=== PATIENT | female | born 1940 | race Caucasian/White ===

== ENCOUNTER 2018-08-04 04:53 | Emergency (ER) | payer MEDICARE, OTHER ==
[~2018-08-04] VITALS: Ht 157.5 cm; Wt 61.2 kg
[~2018-08-04 04:53] MED LIST: ASPIRIN81 MG PO; MAGNESIUM250 MG PO; MICARDIS HCT 41 EACH PO; OMEGA-31000 MG PO; VITAMIN B12 COMPLEX PO; VITAMIN D32000 UNIT PO; ZINC PO; [UNRECOGNIZED DRUG - OTHER] PO
[2018-08-04] MEDS ORDERED: FAMOTIDINE 20 MG/2 ML VIAL IV ONE (05:02)
[2018-08-04] MEDS ORDERED: DIPHENHYDRAMINE HCL INJ 50 MG/ML VIAL ONE (05:02)
[2018-08-04] MEDS ORDERED: METHYLPREDNISOLONE SOD SUCC 125 MG/2ML VIAL ONE (05:02)
[2018-08-04] MEDS ORDERED: FAMOTIDINE 20 MG/2 ML VIAL IV STA (05:10)
[2018-08-04] MEDS ORDERED: DIPHENHYDRAMINE HCL INJ 50 MG/ML VIAL IV ONE (05:15)
[2018-08-04] MEDS ORDERED: METHYLPREDNISOLONE SOD SUCC 125 MG/2ML VIAL IV ONE (05:15)
--- NOTE | 2018-08-04 07:05 | NUR ---
DR JORDAN AT BEDSIDE FOR PATIENT EVAL AND DISCUSSING THE CURRENT PLAN OF CARE WITH PATIENT AND FAMILY,VERBALIZED UNDERSTANDING. NO SIGNS OF ACUTE DISTRESS NOTED AT THIS TIME.
== END 2018-08-04 07:30 | disposition home or self-care (01) ==
LOC: ER 04:53
DX: L50.0 Allergic urticaria (principal); I10 Essential (primary) hypertension
CPT/HCPCS: 99283; J1200; J2930

== ENCOUNTER → 2019-02-11 | Day surgery (SDC) | payer MEDICARE ==
[~2019-02-11] MED LIST changes: +CLONIDINE HCL0.1 MG PO; +FENTANYL CITRATE/PF 100MCG/2 ML INJ ONE; +LEVOTHYROXINE50 MCG PO; +MIDAZOLAM HCL 2 MG/2 ML VIAL ONE; +ONDANSETRON HCL INJ 2MG/ML 2ML 2 MG/ML VIAL ONE; +OR PHACO EYE KIT ONE; +PREOP PHACO EYE KIT ONE
[2019-02-11 14:30] VITALS: BP 159/89
== END | disposition home or self-care (01) ==
LOC: OR 10:43
PROVIDERS: ATTEND Ophthalmology
DX: H25.12 Age-related nuclear cataract, left eye (principal); E78.5 Hyperlipidemia, unspecified; E03.9 Hypothyroidism, unspecified; I10 Essential (primary) hypertension; F41.9 Anxiety disorder, unspecified; Z88.3 Allergy status to other anti-infective agents; Z88.8 Allergy status to other drugs, medicaments and biological substances
CPT/HCPCS: 66984; J2250; J2405; J3010; V2632

== ENCOUNTER → 2019-02-25 | Day surgery (SDC) | payer MEDICARE ==
[2019-02-18 16:06] LABS: BASOPHILS % 0.2 % (0.0-1.0); EOSINOPHILS # (AUTO) 0.3 (0.0-0.4); EOSINOPHILS % 3.1 % (0.0-6.0); HEMATOCRIT 42.5 % (34.2-44.1); HEMOGLOBIN 13.6 g/dL (12.0-16.0); LYMPHOCYTES # (AUTO) 3.1 (1.0-3.2); LYMPHOCYTES % 32.9 % (18.0-39.1); MEAN CORPUSCULAR HEMOGLOBIN 30.4 pg (28-32); MEAN CORPUSCULAR VOLUME 95.1 fL (81-99); MONOCYTES # (AUTO) 0.9 (0.2-0.8); NEUTROPHILS % 53.5 % (38.7-80.0); PLATELET COUNT 179 x10e3/uL (140-360); RED BLOOD COUNT 4.47 x10e6/uL (3.6-5.1); RED CELL DISTRIBUTION WIDTH 13.2 % (11.7-14.4)
[~2019-02-25] MED LIST changes: +DEXAMETHASONE SOD PHOS INJ 4 MG/ML VIAL ONE
--- OUTSIDE RECORDS SUMMARY | 2019-02-25 07:25 | XMS REPORT | CCD ---
Author Author Auto Generated Organization [facility] Address Unknown Phone Unavailable Care Team Providers Care Story Writer Name Role Phone Nirali Han CP [phone] Jeana Pack CP Unavailable True Mccall Cathi CP Jennifer Turner CP Unavailable Sirena Blankenship CP Unavailable Nichelle Harman CP Unavailable Aprana Lima CP Unavailable Brie Oro CP ChartServer, Login CP Unavailable Ashleigh Thomas CP [phone] SYSTEM, SYSTEM CP Unavailable Carl Pace CP [phone] Roberto Carlos Polk CP Diamond Boykin CP Unavailable Allergies, Adverse Reactions, Alerts Substance Reaction Status all cholesterol meds ?? Active all diuretics ?? Active Lipitor ?? Active Neosporin ?? Active Vital Signs Most recent to oldest [Reference Range]: 1 2 3 Height 157.48 cm (02/24/2011 17:37:00) ? Temperature Oral [96.4-99.1 DegF] 98.1 DegF (02/24/2011 21:38:00) ?? 97.7 DegF (02/24/2011 17:26:00) ? Systolic Blood Pressure [90-140 mmHg] 124 mmHg (02/24/2011 21:38:00) ?? 116 mmHg (02/24/2011 19:57:00) ?? 157 mmHg *HI* (02/24/2011 17:26:00) ?? Diastolic Blood Pressure [60-90 mmHg] 81 mmHg (02/24/2011 21:38:00) ?? 72 mmHg (02/24/2011 19:57:00) ?? 79 mmHg (02/24/2011 17:26:00) ?? Respiratory Rate [14-20 BRMIN] 18 BRMIN (02/24/2011 21:38:00) ?? 16 BRMIN (02/24/2011 19:57:00) ?? 18 BRMIN (02/24/2011 17:26:00) ?? Peripheral Pulse Rate [60-100 bpm] 81 bpm (02/24/2011 21:38:00) ?? 75 bpm (02/24/2011 19:57:00) ?? 98 bpm (02/24/2011 17:26:00) ?? Weight 66.818 kg (02/24/2011 17:37:00) ? Results HEMATOLOGY Most recent to oldest [Reference Range]: 1 WBC [3.7-10.4 K/CMM] 7.2 K/CMM (02/24/2011 19:15:00) ?? RBC [4.20-5.40 M/CMM] 3.10 M/CMM *LOW* (02/24/2011:15:00) ?? Hgb [12.0-16.0 g/dL] 10.3 g/dL *LOW* (02/24/2011 19:15:00) ?? Hct [36.0-48.0 %] 30.2 % *LOW* (02/24/2011:15:00) ?? MCV [81.0-99.0 fL] 97.3 fL (02/24/2011 19:15:00) ?? MCH [27.0-31.0 pg] 33.1 pg *HI* (02/24/2011:15:00) ?? MCHC [32.0-36.0 g/dL] 34.0 g/dL (02/24/2011 19:15:00) ?? RDW [11.5-14.5 %] 17.4 % *HI* (02/24/2011:15:00) ?? Platelet [133-450 K/CMM] 458 K/CMM *HI* (02/24/2011 19:15:00) ?? MPV [7.4-10.4 fL] 8.9 fL (02/24/2011:15:00) ?? Segs [45.0-75.0 %] 59.3 % (02/24/2011 19:15:00) ?? Lymphocytes [20.0-40.0 %] 26.0 % (02/24/2011:15:00) ?? Monocytes [2.0-12.0 %] 10.7 % (02/24/2011 19:15:00) ?? Eosinophils [0.0-4.0 %] 2.4 % (02/24/2011:15:00) ?? Basophils [0.0-1.0 %] 1.6 % *HI* (02/24/2011 19:15:00) ?? Segs-Bands # [1.5-8.1 K/CMM] 4.3 K/CMM (02/24/2011:15:00) ?? Lymphocytes # [1.0-5.5 K/CMM] 1.9 K/CMM (02/24/2011:15:00) ?? Monocytes # [0.0-0.8 K/CMM] 0.8 K/CMM (02/24/2011 19:15:00) ?? Eosinophils # [0.0-0.5 K/CMM] 0.2 K/CMM (02/24/2011 19:15:00) ?? Basophils # [0.0-0.2 K/CMM] 0.1 K/CMM (02/24/2011 19:15:00) ?? PT [12.0-14.7 seconds] 19.0 seconds *HI* (02/24/2011:15:00) ?? INR [0.85-1.17] 1.61 1 *HI* (02/24/2011:15:00) ?? PTT [22.9-35.8 seconds] 30.8 seconds 2 (02/24/2011:15:00) ?? 1Interpretive Data: RECOMMENDED RANGES FOR PROTIME INR: 2.0-3.0 for most medical and surgical thromboembolic states. 2.5-3.5 for artificial heart valves and recurrent embolism.INR SHOULD BE USED ONLY FOR PATIENTS ON STABLE ANTICOAGULANT THERAPY. 2Interpretive Data: Heparin Therapeutic Range: 57 - 92 Seconds
--- OUTSIDE RECORDS SUMMARY | 2019-02-25 07:25 | XMS REPORT | CCD ---
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
--- OUTSIDE RECORDS SUMMARY | 2019-02-25 07:25 | XMS REPORT | Summary of Care ---
Author Organization Unknown Address Unknown Phone Unavailable Encounter HQ Scooter(JUS) [id number] Date(s): 10/17/13 - 10/17/13 [facility] [address] Discharge Disposition: Home Physician Attending: True Mccall MD Physician_Referring: True Mccall MD Reason for Visit SCREENING Problem List Condition Effective Dates Status Health Status Informant Anemia(Confirmed) Active Back Active injury(Confirmed) Breast Active cancer(Confirmed) Cholesterol(Confirme Active d) DVT - Deep vein Active thrombosis(Confirmed ) Hypertension(Confirm Active ed) IVC - Insertion of Active inferior vena caval filter(Confirmed) Spinal Active fusion(Confirmed) Allergies, Adverse Reactions, Alerts Substance Reaction Severity Status all cholesterol meds Active all diuretics Active Lipitor Active Neosporin Active Medications No data available for this section Medications Administered During Your Visit No data available for this section Immunizations No data available for this section
--- OUTSIDE RECORDS SUMMARY | 2019-02-25 07:25 | XMS REPORT | CCD ---
Author Author Auto Generated Organization [facility] Address Unknown Phone Unavailable Care Team Providers Care Survey Operations Director Name Role Phone CP Unavailable Han, Nirali CP [phone] Jeana Pack CP Unavailable MccallTrue goldberg Cathi CP Jennifer Turner CP Unavailable Sirena Blankenship CP Unavailable Nichelle Harman CP Unavailable Aparna Lima CP Unavailable Brie Oro CP ChartServer, Login CP Unavailable Ashleigh Thomas CP [phone] SYSTEM, SYSTEM CP Unavailable Carl Pace CP [phone] Roberto Carlos Polk CP Diamond Boykin CP [...] ?? RBC [4.20-5.40 M/CMM] 3.10 M/CMM *LOW* (02/24/2011 19:15:00) ?? Hgb [12.0-16.0 g/dL] 10.3 g/dL *LOW* (02/24/2011 19:15:00) ?? Hct [36.0-48.0 %] 30.2 % *LOW* (02/24/2011 19:15:00) ?? MCV [81.0-99.0 fL] 97.3 fL (02/24/2011 19:15:00) ?? MCH [27.0-31.0 pg] 33.1 pg *HI* (02/24/2011:15:00) ?? MCHC [32.0-36.0 g/dL] 34.0 g/dL (02/24/2011 19:15:00) ?? RDW [11.5-14.5 %] 17.4 % *HI* (02/24/2011:15:00) ?? Platelet [133-450 K/CMM] 458 K/CMM *HI* (02/24/2011 19:15:00) ?? MPV [7.4-10.4 fL] 8.9 fL (02/24/2011 19:15:00) ?? Segs [45.0-75.0 %] 59.3 % (02/24/2011 19:15:00) ?? Lymphocytes [20.0-40.0 %] 26.0 % (02/24/2011:15:00) ?? Monocytes [2.0-12.0 %] 10.7 % (02/24/2011 19:15:00) ?? Eosinophils [0.0-4.0 %] 2.4 % (02/24/2011:15:00) ?? Basophils [0.0-1.0 %] 1.6 % *HI* (02/24/2011 19:15:00) ?? Segs-Bands # [1.5-8.1 K/CMM] 4.3 K/CMM (02/24/2011 19:15:00) ?? Lymphocytes # [1.0-5.5 K/CMM] 1.9 K/CMM (02/24/2011 19:15:00) ?? Monocytes # [0.0-0.8 K/CMM] 0.8 K/CMM (02/24/2011 19:15:00) ?? Eosinophils # [0.0-0.5 K/CMM] 0.2 K/CMM (02/24/2011 19:15:00) ?? Basophils # [0.0-0.2 K/CMM] 0.1 K/CMM (02/24/2011 19:15:00) ?? PT [12.0-14.7 seconds] 19.0 seconds *HI* (02/24/2011:15:00) ?? INR [0.85-1.17] 1.61 1 *HI* (02/24/2011 19:15:00) ?? PTT [22.9-35.8 seconds] 30.8 seconds 2 (02/24/2011 19:15:00) ?? 1Interpretive Data: RECOMMENDED RANGES FOR PROTIME INR: 2.0-3.0 for most medical and surgical thromboembolic states. 2.5-3.5 for artificial heart valves and recurrent embolism.INR SHOULD BE USED ONLY FOR PATIENTS ON STABLE ANTICOAGULANT THERAPY. 2Interpretive Data: Heparin Therapeutic Range: 57 - 92 Seconds Procedures Procedures Date Related Diagnosis Emergency department visit for the evaluation and management 02/24/2011 00:00:00 ?? of a patient, which requires these 3 smith components: A detailed history; A detailed examination; and Medical decision making of moderate complexity. Counseling and/or coordination of care with o Introduction of needle or intracatheter, vein 02/24/2011 00:00:00 ?? Venous Catheterization, Not Elsewhere Classified 02/24/2011 00:00:00 ??
--- OUTSIDE RECORDS SUMMARY | 2019-02-25 07:25 | XMS REPORT | Summary of Care ---
Author Author [facility] Organization [facility] Address Unknown Phone Unavailable Encounter HQ Scooter(JUS) [id number] Date(s): 06/02/18 - 06/02/18 [facility] [address] [place] [address]- Encounter Diagnosis Pain in right shoulder (Final) - 06/07/18 Incomplete rotator cuff tear or rupture of right shoulder, not specified as trau matic (Final) - Primary osteoarthritis, right shoulder (Final) - Bursitis of right shoulder (Final) - Effusion, right shoulder (Final) - Unspecified sprain of right shoulder joint, initial encounter (Final) - Discharge Disposition: Home or Self Care Attending Physician: Gorge Winter MD Referring Physician: Gorge Winter MD Vital Signs No data available for this section Problem List Condition Effective Dates Status Health Status Informant Anemia(Confirmed) Active Back Active injury(Confirmed) Breast Active cancer(Confirmed) DVT of lower Resolved extremity (deep venous thrombosis)(Confirme d) DVT - Deep vein Active thrombosis(Confirmed ) FH: Active hypertension(Confirm ed) Hypertension(Confirm Active ed) Hypothyroid(Confirme Active d) Presence of IVC Active filter(Confirmed) IVC - Insertion of Active inferior vena caval filter(Confirmed) Breast Resolved cancer(Confirmed) Pain in right Active shoulder(Confirmed) Spinal Active fusion(Confirmed) Allergies, Adverse Reactions, Alerts Substance Reaction Severity Status all diuretics Active all cholesterol meds Active Neosporin Active Lipitor Active Medications No data available for this section Results No data available for this section Immunizations No data available for this section Procedures Procedure Date Related Diagnosis Body Site Status Bunionectomy Completed IVC - Insertion of inferior vena caval filter Completed Lumbar and lumbosacral fusion by posterior Completed technique Partial mastectomy of left breast Completed Social History Social History Type Response Alcohol Past Smoking Status Former smoker; Exposure to Tobacco Smoke None; Cigarette Smoking Last 365 Days No; Reg Smoking Cessation Counseling No entered on: 06/11/18 Assessment and Plan No data available for this section
--- OUTSIDE RECORDS SUMMARY | 2019-02-25 07:25 | XMS REPORT | CCD ---
Author Author Auto Generated Organization [facility] Address Unknown Phone Unavailable Care Team Providers Care Refining Machine Operator Name Role Phone RamoneJeana CP Unavailable True Mccall Cathi CP Jennifer Turner CP Unavailable Sirena Blankenship CP Unavailable Nichelle Harman CP Unavailable Aparna Lima CP Unavailable Brie Oro CP ChartServer, Login CP Unavailable Ashleigh Thomas CP [phone] SYSTEM, SYSTEM CP Unavailable Carl Pace CP [phone] Roberto Carlos Polk CP Diamond Boykin CP [...] ?? MCH [27.0-31.0 pg] 33.1 pg *HI* (02/24/2011 19:15:00) ?? MCHC [32.0-36.0 g/dL] 34.0 g/dL (02/24/2011:15:00) ?? RDW [11.5-14.5 %] 17.4 % *HI* (02/24/2011 19:15:00) ?? Platelet [133-450 K/CMM] 458 K/CMM *HI* (02/24/2011 19:15:00) ?? MPV [7.4-10.4 fL] 8.9 fL (02/24/2011 19:15:00) ?? Segs [45.0-75.0 %] 59.3 % (02/24/2011:15:00) ?? Lymphocytes [20.0-40.0 %] 26.0 % (02/24/2011:15:00) ?? Monocytes [2.0-12.0 %] 10.7 % (02/24/2011:15:00) ?? Eosinophils [0.0-4.0 %] 2.4 % (02/24/2011:15:00) ?? Basophils [0.0-1.0 %] 1.6 % *HI* (02/24/2011:15:00) ?? Segs-Bands # [1.5-8.1 K/CMM] 4.3 K/CMM (02/24/2011:15:00) ?? Lymphocytes # [1.0-5.5 K/CMM] 1.9 K/CMM (02/24/2011:15:00) ?? Monocytes # [0.0-0.8 K/CMM] 0.8 K/CMM (02/24/2011:15:00) ?? Eosinophils # [0.0-0.5 K/CMM] 0.2 K/CMM (02/24/2011 19:15:00) ?? Basophils # [0.0-0.2 K/CMM] 0.1 K/CMM (02/24/2011:15:00) ?? PT [12.0-14.7 seconds] 19.0 seconds *HI* [...]
--- OUTSIDE RECORDS SUMMARY | 2019-02-25 07:25 | XMS REPORT | CCD ---
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
--- OUTSIDE RECORDS SUMMARY | 2019-02-25 07:25 | XMS REPORT | CCD ---
Author Author Auto Generated Organization [facility] Address Unknown Phone Unavailable Care Team Providers Care Beveling Machine Operator Name Role Phone True Mccall Cathi RP Brie Oro CP Margo Elmore CP [phone] ChartServer, Login CP Unavailable Ashleigh Thomas CP [phone] Malissa Preston CP [phone] Anca Chilel CP [phone] Allergies, Adverse Reactions, Alerts Substance Reaction Status all cholesterol meds ?? Active all diuretics ?? Active Lipitor ?? Active Neosporin ?? Active Problem List Condition Effective Dates Status Anemia ?? Active Back injury ?? Active Breast cancer ?? Active Cholesterol ?? Active DVT - Deep vein thrombosis ?? Active Hypertension ?? Active IVC - Insertion of inferior vena caval filter ?? Active Spinal fusion ?? Active
--- OUTSIDE RECORDS SUMMARY | 2019-02-25 07:25 | XMS REPORT | CCD ---
Author Author Auto Generated Organization [facility] Address Unknown Phone Unavailable Care Team Providers Care Special Education Teaching Assistant Name Role Phone RamoneJeana CP Unavailable True Mccall Cathi CP Jennifer Turner CP Unavailable Sirena Blankenship CP Unavailable Nichelle Harman CP Unavailable Aparna Lima CP Unavailable Brie Oro CP ChartServer, Login CP Unavailable Ashleigh Thomas CP [phone] SYSTEM, SYSTEM CP Unavailable Carl Pace CP [phone] Roberto Carlos Polk CP Diamond Boykin CP [...]
--- OUTSIDE RECORDS SUMMARY | 2019-02-25 07:25 | XMS REPORT | CCD ---
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
--- OUTSIDE RECORDS SUMMARY | 2019-02-25 07:25 | XMS REPORT | CCD ---
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 Spinal fusion Active Medications Medication Instructions Start Date End Date Status labetalol 20 mg, 4 mL, Route: IVP, Drug form: 09/03/2012 09/03/2012 Ordered INJ, ONCE, Dosing Weight 70.455, kg, Start date: 09/03/12 12:05:00, Stop date: 09/03/12 12:05:00 Vital Signs Most recent to oldest [Reference Range]: 1 Height 157.48 cm (09/03/2012 11:36:00) Weight 70.455 kg (09/03/2012 11:36:00) Results URINALYSIS Most recent to oldest [Reference Range]: 1 UA Turbidity [Clear] Clear (09/03/2012 12:37:00) UA Color Ltyellow *NA* (09/03/2012 12:37:00) UA pH [5.0-8.0] 8.0 (09/03/2012 12:37:00) UA Spec Grav [<=1.030] 1.006 (09/03/2012 12:37:00) UA Glucose [Negative mg/dL] Negative mg/dL *NA* (09/03/2012 12:37:00) UA Blood [Negative] Small *ABN* (09/03/2012 12:37:00) UA Ketones [Negative mg/dL] Negative mg/dL *NA* (09/03/2012 12:37:00) UA Protein [Negative mg/dL] Negative mg/dL (09/03/2012 12:37:00) UA Urobilinogen [0.1-1.0 mg/dL] <=1.0 mg/dL *NA* (09/03/2012:37:00) UA Bili [Negative] Negative *NA* (09/03/2012 12:37:00) UA Leuk Est [Negative] Negative (09/03/2012:37:00) UA Nitrite [Negative] Negative (09/03/2012:37:00) UA WBC [0-5 /HPF] <1 /HPF (09/03/2012:37:00) UA RBC [0-2 /HPF] 5 /HPF *HI* (09/03/2012:37:00) UA Sq Epi None Seen *NA* (09/03/2012:37:00) CHEMISTRY Most recent to oldest [Reference Range]: 1 Sodium Lvl [135-145 mEq/L] 138 mEq/L (09/03/2012:23:00) Potassium Lvl [3.5-5.1 mEq/L] 4.7 mEq/L (09/03/2012:23:00) Chloride Lvl [95-109 mEq/L] 102 mEq/L (09/03/2012:23:00) CO2 [24-32 mEq/L] 30 mEq/L (09/03/2012:23:00) AGAP [10.0-20.0 mEq/L] 10.7 mEq/L (09/03/2012:23:00) Creatinine Lvl [0.5-1.4 mg/dL] 0.4 mg/dL *LOW* (09/03/2012:23:00) eGFR 103 mL/min/1.73m2 1 *NA* (09/03/2012:23:00) BUN [7-22 mg/dL] 9 mg/dL (09/03/2012:23:00) B/C Ratio [6-25] 22 (09/03/2012 12:23:00) Glucose Lvl [70-99 mg/dL] 104 mg/dL 2 *HI* (09/03/2012 12:23:00) Total Protein [6.4-8.4 g/dL] 8.3 g/dL (09/03/201223:00) Albumin Lvl [3.5-5.0 g/dL] 4.3 g/dL (09/03/2012:00) Globulin [2.0-4.0 g/dL] 4.0 g/dL (09/03/2012:00) A/G Ratio [0.7-1.6] 1.1 (09/03/2012:) Calcium Lvl [8.5-10.5 mg/dL] 9.4 mg/dL (09/03/2012:00) ALT [0-65 unit/L] 33 unit/L (09/03/2012:) AST [0-37 unit/L] 45 unit/L *HI* (09/03/201200) Alk Phos [39-136 unit/L] 86 unit/L (09/03/2012:) Bili Total [0.2-1.3 mg/dL] 0.8 mg/dL (09/03/2012:00) Total CK [12-191 unit/L] 180 unit/L (09/03/2012:) CK MB [0.5-3.6 ng/mL] 1.1 ng/mL (09/03/2012:00) CK MB Index [0.0-2.5] 0.6 (09/03/2012:) Troponin-I [0.00-0.40 ng/mL] <0.02 ng/mL (09/03/2012:00) BNP [<=100 pg/mL] 28 pg/mL 3 (09/03/2012:00) 1Result Comment: The eGFR is calculated using the CKD-EPI formula. In most young, healthy individuals the eGFR will be >90 mL/min/1.73m2. The eGFR declines with age. An eGFR of 60-89 may be normal in some populations, particularly the elderly, for whom the CKD-EPI formula has not been extensively validated. Use of the eGFR is not recommended in the following populations: Individuals with unstable creatinine concentrations, including patients and those with serious co-morbid conditions. Patients with extremes in muscle mass or diet. The data above are obtained from the National Kidney Disease Education Program ( NKDEP) which additionally recommends that when the eGFR is used in patients with extremes of body mass index for purposes of drug dosing, the eGFR should be mul tiplied by the estimated BMI. 2Interpretive Data: Adult reference range values reflect the clinical guidelines of the [place] [employer]. 3Interpretive Data: Elevated results are in line with increasing severity of congestive heart failure. Minor elevations between 100 and 300 may be seen with Myocardial Ischemia, Sodium retaining drugs, and compensated/treated heart failure. HEMATOLOGY Most recent to oldest [Reference Range]: 1 WBC [3.7-10.4 K/CMM] 7.6 K/CMM (09/03/2012:23:00) RBC [4.20-5.40 M/CMM] 4.85 M/CMM (09/03/2012:23:00) Hgb [12.0-16.0 g/dL] 15.1 g/dL (09/03/2012:23:00) Hct [36.0-48.0 %] 45.6 % (09/03/2012:23:00) MCV [81.0-99.0 fL] 94.0 fL (09/03/2012:00) MCH [27.0-31.0 pg] 31.2 pg *HI* (09/03/201223:00) MCHC [32.0-36.0 g/dL] 33.2 g/dL (09/03/2012:23:00) RDW [11.5-14.5 %] 13.0 % (09/03/2012:00) Platelet [133-450 K/CMM] 180 K/CMM (09/03/2012:23:00) MPV [7.4-10.4 fL] 11.2 fL *HI* (09/03/2012:00) Segs [45.0-75.0 %] 63.0 % (09/03/2012:23:00) Lymphocytes [20.0-40.0 %] 27.4 % (09/03/20122300) Monocytes [2.0-12.0 %] 7.3 % (09/03/2012 12:23:00) Eosinophils [0.0-4.0 %] 1.5 % (09/03/2012 12:23:00) Basophils [0.0-1.0 %] 0.8 % (09/03/2012 12:23:00) Segs-Bands # [1.5-8.1 K/CMM] 4.8 K/CMM (09/03/2012 12:23:00) Lymphocytes # [1.0-5.5 K/CMM] 2.1 K/CMM (09/03/2012 12:23:00) Monocytes # [0.0-0.8 K/CMM] 0.6 K/CMM (09/03/2012 12:23:00) Eosinophils # [0.0-0.5 K/CMM] 0.1 K/CMM (09/03/2012 12:23:00) Basophils # [0.0-0.2 K/CMM] 0.1 K/CMM (09/03/2012 12:23:00) PT [12.0-14.7 seconds] 12.6 seconds (09/03/2012 12:23:00) INR [0.85-1.17] 0.92 4 (09/03/2012 12:23:00) PTT [22.9-35.8 seconds] 23.1 seconds 5 (09/03/2012 12:23:00) 4Interpretive Data: RECOMMENDED RANGES FOR PROTIME INR: 2.0-3.0 for most medical and surgical thromboembolic states. 2.5-3.5 for artificial heart valves and recurrent embolism. INR SHOULD BE USED ONLY FOR PATIENTS ON STABLE ANTICOAGULANT THERAPY. 5Interpretive Data: Heparin Therapeutic Range: 57 - 92 Seconds
--- OUTSIDE RECORDS SUMMARY | 2019-02-25 07:25 | XMS REPORT | Summary of Care ---
Author Author [facility] Organization [facility] Address Unknown Phone Unavailable Encounter HQ Scooter(FIN) [id number] Date(s): 09/07/15 - 09/07/15 [facility] [address] [place] [address]- Discharge Disposition: Home Attending Physician: Gorge Winter MD Referring Physician: [...] No data available for this section Procedures No data available for this section Social History No data available for this section Assessment and Plan No data available for this section
--- OUTSIDE RECORDS SUMMARY | 2019-02-25 07:25 | XMS REPORT | Continuity of Care Document ---
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 Role Phone [employer] Information [employer] Unavailable Unavailable Problems Problem Status Onset Date Classification Date Reported Comments Source Primary osteoarthritis, right shoulder 08/07/2018 02/19/2019 [facility] [place] Complete rotator cuff tear or rupture of right shoulder, not specified as traumatic 06/17/2018 12/29/2018 [facility] UNK Active 06/05/2018 [facility] M25.511 - PAIN IN RIGHT SHOULDER Active 05/30/2018 BRITTANEY [place] DX: M25.511=PAIN IN RIGHT SHOULDER Active 05/30/2018 [facility] SHOULDER Active 05/25/2018 [facility] Hallie Encounter for screening mammogram for malignant neoplasm of breast 08/02/2017 11/02/2017 [facility] Z12.31 M19.91 Active 07/03/2017 [facility] SCREENING MAMMO Active 09/03/2015 [facility] SCREENING Active 10/15/2013 [facility] 793.7=ABN FIND-MUSCULOSKEL SYS/722.52=DD Active 02/11/2013 [facility] CHEST PAIN, BLOOD PRESSURE Active 09/03/2012 [facility] ROUTINE SCREENING Active 05/06/2012 [facility] STAT* LEFT POPLITEAL DVT Active 06/05/2011 [facility] ROUTINE Active 04/26/2011 [facility] CELLULITIS LOW BACK Active 03/13/2011 [facility] OTHER Active 02/23/2011 [facility] LEG PAIN . Active 02/13/2011 [facility] HYPERTENSION . Active 02/03/2011 [facility] Primary osteoarthritis, unspecified site 11/02/2017 [facility] Age-related osteoporosis without current pathological fracture 11/02/2017 [facility] Other specified disorders of bone density and structure, left lower leg 11/02/2017 [facility] Asymptomatic menopausal state 11/02/2017 [facility] Other specified postprocedural states 11/02/2017 [facility] Anemia (disorder) Active Problem 02/19/2019 BRITTANEY [place],[facility] [place] Injury of back (disorder) Active Problem 02/19/2019 [place],[facility] [place] Malignant tumor of breast (disorder) Active Problem 02/19/2019 BRITTANE[place],[facility] [place] Deep venous thrombosis of lower extremity (disorder) Resolved Problem 02/19/2019 BRITT[place],[facility] [place] Deep venous thrombosis (disorder) Active Problem 02/19/2019 BRITTANE[place],[facility] [place] Family history: Hypertension (context-dependent category) Active Problem 02/19/2019 BR[place],[facility] [place] Hypertensive disorder, systemic arterial (disorder) Active Problem 02/19/2019 BRITTANEY [place],[facility] [place] Hypothyroidism (disorder) Active Problem 02/19/2019 BRITT[place],[facility] [place] Inferior vena cava filter present (finding) Active Problem 02/19/2019 BRITTANE[place],[facility] [place] Insertion of inferior vena caval filter (procedure) Active Problem 02/19/2019 BRITTANE[place],[facility] [place] Shoulder pain (finding) Active Problem 02/19/2019 [facility] [place] Spinal arthrodesis (procedure) Active Problem 02/19/2019 BRITTANEY [place],[facility] [place] Anemia Active Problem 02/21/2013 [facility] Back injury Active Problem 02/21/2013 [facility] Breast cancer Active Problem 02/21/2013 [facility] Cholesterol Active Problem 02/21/2013 [facility] DVT - Deep vein thrombosis Active Problem 02/21/2013 [facility] Hypertension Active Problem 02/21/2013 [facility] IVC - Insertion of inferior vena caval filter Active Problem 02/21/2013 [facility] Spinal fusion Active Problem 02/21/2013 [facility] DVT - Deep vein thrombosis Active Problem 06/10/2011 [facility] IVC - Insertion of inferior vena caval filter Active Problem 06/10/2011 [facility] Cholesterol (substance) Active Problem 09/10/2015 [facility] Incomplete rotator cuff tear or rupture of right shoulder, not specified as traumatic 12/21/2018 [facility] Bursitis of right shoulder 12/21/2018 [facility] Effusion, right shoulder 12/21/2018 [facility] Unspecified sprain of right shoulder joint, initial encounter 12/21/2018 [facility] Pain in right shoulder 02/19/2019 [facility] [place] Sprain of right rotator cuff capsule, subsequent encounter 02/19/2019 [facility] [place] Impingement syndrome of right shoulder 02/19/2019 [facility] [place] Superior glenoid labrum lesion of right shoulder, subsequent encounter 02/19/2019 [facility] [place] Weakness 02/19/2019 [facility] [place] Abnormal posture 02/19/2019 [facility] [place] Pure hypercholesterolemia, unspecified 02/19/2019 [facility] [place] Essential (primary) hypertension 02/19/2019 [facility] [place] Personal history of malignant neoplasm, unspecified 02/19/2019 [facility] [place] Strain of muscle, fascia and tendon of other parts of biceps, right arm, initial encounter 12/29/2018 [facility] Superior glenoid labrum lesion of right shoulder, initial encounter 12/29/2018 [facility] Sprain of unspecified parts of right shoulder girdle, initial encounter 12/29/2018 [facility] Loose body in right shoulder 12/29/2018 [facility] Personal history of nicotine dependence 12/29/2018 [facility] 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 12/29/2018 [facility] Hypothyroidism, unspecified 12/29/2018 [facility] Allergy status to other drugs, medicaments and biological substances status 12/29/2018 [facility] CELLULITIS NOS Active [facility] HYPERTENSION NOS Active [facility] SCREEN MAMMOGRAM NEC Active [facility] AC DVT/EMB DISTL LOW EXT Active [facility] JOINT PAIN-PELVIS Active [facility] SPIN STEN,LUMBR WO GAVIN Active [facility] NONSP ABN FIND-MS SYSTEM Active [facility] LUMB/LUMBOSAC DISC DEGEN Active [facility] ENCNTR SCREEN MAMMOGRAM FOR MALIGNANT NE Active [facility] SPRAIN OF RIGHT ROTATOR CUFF CAPSULE, IN [facility] PRIMARY OSTEOARTHRITIS, UNSPECIFIED SITE Active [facility] ABNORMAL RESULTS OF OTHER ENDOCRINE FUNC Active [facility] ASYMPTOMATIC MENOPAUSAL STATE Active [facility] PAIN IN RIGHT SHOULDER Active [facility] Medications Medication Details Route Status Patient Instructions Ordering Provider Order Date Source POLYETHYLENE GLYCOL 3350 17 gm, Route: PO, Daily, Dosing Weight 61.591, kg, Start date: 06/12/18 9:00:00 RESOLUTION AGENT, Duration: 30 day, Stop date: 07/11/18 9:00:00 RESOLUTION AGENT Inactive 06/12/2018 [facility] Thyroxine 25 microgram, Route: PO, Drug form: TAB, Daily, Dosing Weight 61.591, kg, Start date: 06/12/18 9:00:00 RESOLUTION AGENT, Duration: 30 day, Stop date: 07/11/18 9:00:00 RESOLUTION AGENT Inactive 06/12/2018 [facility] Keflex 500 mg, Route: PO, Drug form: CAP, QID, Dosing Weight 61.591, kg, Start date: 06/11/18 17:00:00 RESOLUTION AGENT, Duration: 30 day, Stop date: 07/11/18 13:00:00 RESOLUTION AGENT No Longer Active 06/11/2018 [facility] glycopyrrolate (ANES) Route: IV, Drug form: INJ, ONCE, Stop date: 06/11/18 16:02:00 RESOLUTION AGENT Inactive 06/11/2018 [facility] neostigmine (ANES) Route: IV, Drug form: INJ, ONCE, Stop date: 06/11/18 16:02:00 RESOLUTION AGENT Inactive 06/11/2018 [facility] metoclopramide (ANES) Route: IV, Drug form: INJ, ONCE, Stop date: 06/11/18 15:44:00 RESOLUTION AGENT Inactive 06/11/2018 [facility] acetaminophen (ANES) Route: IV, Drug form: INJ, ONCE, Stop date: 06/11/18 15:44:00 RESOLUTION AGENT Inactive 06/11/2018 [facility] famotidine (ANES) Route: IV, Drug form: INJ, ONCE, Stop date: 06/11/18 15:44:00 RESOLUTION AGENT Inactive 06/11/2018 [facility] ceFAZolin (ANES) Route: IV, Drug form: INJ, ONCE, Stop date: 06/11/18 15:44:00 RESOLUTION AGENT Inactive 06/11/2018 [facility] ondansetron (ANES) Route: IV, Drug form: INJ, ONCE, Stop date: 06/11/18 15:44:00 RESOLUTION AGENT Inactive 06/11/2018 [facility] Ondansetron 4 mg, Route: IVP, Drug form: INJ, ONCE, Dosing Weight 61.591, kg, Start date: 06/11/18 15:42:00 RESOLUTION AGENT, Stop date: 06/11/18 15:42:00 RESOLUTION AGENT, .. No Longer Active 06/11/2018 [facility] Tramadol 50 mg, Route: PO, Drug form: TAB, ONCE, Dosing Weight 61.591, kg, Start date: 06/11/18 15:42:00 RESOLUTION AGENT, Stop date: 06/11/18 15:42:00 RESOLUTION AGENT, .. No Longer Active 06/11/2018 [facility] Acetaminophen 325 MG / Hydrocodone Bitartrate 5 MG Oral Tablet 1 tab, Route: PO, Dosing Weight 61.591, kg, ONCE, Start date: 06/11/18 15:42:00 RESOLUTION AGENT, Stop date: 06/11/18 15:42:00 RESOLUTION AGENT, .. No Longer Active 06/11/2018 [facility] Zofran 4 mg, Route: IV, Drug form: INJ, Q4H, Dosing Weight 61.591, kg, PRN Nausea, Start date: 06/11/18 15:42:00 RESOLUTION AGENT, Duration: 30 day, Stop date: 07/11/18 15:41:00 RESOLUTION AGENT No Longer Active 06/11/2018 [facility] Morphine 2 mg, Route: IVP, Q3H, Dosing Weight 61.591, kg, PRN Pain Score 1-3, Start date: 06/11/18 15:42:00 RESOLUTION AGENT, Duration: 30 day, Stop date: 07/11/18 15:41:00 RESOLUTION AGENT No Longer Active 06/11/2018 [facility] Hydromorphone 0.3 mg, Route: IVP, Q3H, Dosing Weight 61.591, kg, PRN Pain Score 4-6, Start date: 06/11/18 15:42:00 RESOLUTION AGENT, Duration: 30 day, Stop date: 07/11/18 15:41:00 RESOLUTION AGENT No Longer Active 06/11/2018 [facility] rocuronium (ANES) Route: IV, Drug form: INJ, ONCE, Stop date: 06/11/18 15:39:00 RESOLUTION AGENT Inactive 06/11/2018 [facility] propofol (ANES) Route: IV, Drug form: INJ, ONCE, Stop date: 06/11/18 15:39:00 RESOLUTION AGENT Inactive 06/11/2018 [facility] lidocaine (ANES) Route: IV, Drug form: INJ, ONCE, Stop date: 06/11/18 15:39:00 RESOLUTION AGENT Inactive 06/11/2018 [facility] Lactated Ringers Injection IV (ANES) 1000 mL Route: IV, Total Volume: 1,000, Start date: 06/11/18 14:44:00 RESOLUTION AGENT, Stop date: 06/11/18 15:44:00 RESOLUTION AGENT Inactive 06/11/2018 [facility] Calcium Chloride 0.0014 MEQ/ML / Potassium Chloride 0.004 MEQ/ML / Sodium Chloride 0.103 MEQ/ML / Sodium Lactate 0.028 MEQ/ML Injectable Solution 1,000 mL, Rate: 25 ml/hr, Infuse over: 40 hr, Route: IV, Dosing Weight 61.591 kg, Total Volume: 1,000, Start date: 06/11/18 13:39:00 RESOLUTION AGENT, Duration: 30 day, Stop date: 07/11/18 13:38:00 RESOLUTION AGENT, 1.66, m2 Inactive 06/11/2018 [facility] Zofran 4 mg, Route: IVP, Drug form: INJ, ONCE, Dosing Weight 61.591, kg, Start date: 06/11/18 12:57:00 RESOLUTION AGENT, Stop date: 06/11/18 12:57:00 RESOLUTION AGENT Inactive 06/11/2018 [facility] Cephalexin 500 MG Oral Capsule [Keflex] 500 mg=1 cap, PO, QID, X 10 day, # 40 cap, 0 Refill(s) No Longer Active 06/10/2018 [facility] Hydrochlorothiazide 12.5 MG / telmisartan 40 MG Oral Tablet [Micardis-HCT 40/12.5] 1 tab, PO, PRN, 0 Refill(s) On Hold 06/07/2018 [facility] levothyroxine 25 mcg (0.025 mg) oral tablet 25 microgram=1 tab, PO, Daily, # 90 tab, 1 Refill(s) On Hold 06/07/2018 [facility] tizanidine 4 mg oral capsule 4 mg=1 cap, PO, Bedtime, PRN for muscle spasm, # 30 cap, 0 Refill(s) On Hold 06/07/2018 [facility] [place]-3 oral capsule PO, Daily, 0 Refill(s) On Hold 06/07/2018 [facility] POLYETHYLENE GLYCOL 3350 17 gm, PO, Daily, 0 Refill(s) On Hold 06/07/2018 [facility] labetalol 20 mg, 4 mL, Route: IVP, Drug form: INJ, ONCE, Dosing Weight 70.455, kg, Start date: 09/03/12 12:05:00, Stop date: 09/03/12 12:05:00 IVP Active [place] 09/03/2012 [facility] potassium chloride 40 mEq, Route: PO, Drug form: ERTAB, ONCE, Priority: STAT, Start date: 02/13/11 20:59:00, Stop date: 02/13/11 20:59:00 PO No Longer Active [facility] 02/14/2011 [facility] morphine Sulfate 2 mg, Route: IV, ONCE, Start date: 02/13/11 20:51:00, Stop date: 02/13/11 20:51:00 IV No Longer Active [facility] 02/14/2011 [facility] Zofran 4 mg, Route: IVP, Drug form: INJ, ONCE, Priority: STAT, Start date: 02/13/11 20:50:00, Stop date: 02/13/11 20:50:00 IVP No Longer Active [facility] 02/14/2011 [facility] Tylenol 1,000 mg, 2 tab, Route: PO, Drug form: TAB, ONCE, PRN Pain, Priority: STAT, Start date: 02/13/11 20:45:00 PO No Longer Active [facility] 02/14/2011 [facility] Lortab 5/500 oral tablet 1 tab, Route: PO, Drug Form: TAB, ONCE, PRN Pain, STAT, Start date: 02/13/11 20:36:00 PO No Longer Active [facility] 02/14/2011 [facility] Magnesium Oxide (Magnesium) 250 Mg Tablet Daily Active [facility] [place]-3 Fatty Acids ([place]-3) 1,000 Mg Capsule Twice A Day Active [facility] Telmisartan/Hydrochlorothiazid (Micardis Hct 40-12.5 Mg Tablet) 1 Each Tablet Daily Active pt takes when systolic >135. has not taken in several weeks [facility] Zinc Daily Active [facility] Allergies, Adverse Reactions, Alerts Substance Category Reaction Severity Reaction type Status Date Reported Comments Source CHOLESTROL MEDS "DAMAGING MY LIVER" Severe Allergy to Substance Active 01/21/2015 [facility] NEOSPORIN INFLAMMATION TO THE SITE Mild Allergy to Substance Active 01/21/[address] [facility] all diuretics Assertion Drug allergy Active [facility] all cholesterol meds Assertion Drug allergy Active [facility] Neosporin Assertion Propensity to adverse reactions to substance Active [facility] Lipitor Assertion Drug allergy Active [facility] Immunizations No Data Provided for This Section Results Order Name Results Value Reference Range Date Interpretation Comments Source ELECTROLYTES AGAP 11.0 10.0 - 20.0 06/07/2018 [facility] ELECTROLYTES BUN 13 7 - 22 06/07/2018 [facility] ELECTROLYTES Glucose Lvl 100 70 - 99 06/07/2018 [facility] ELECTROLYTES Creatinine Lvl 0.67 0.50 - 1.40 06/07/2018 [facility] ELECTROLYTES Potassium Lvl 4.0 3.5 - 5.1 06/07/2018 [facility] ELECTROLYTES Chloride Lvl 102 95 - 109 06/07/2018 [facility] ELECTROLYTES Sodium Lvl 140 135 - 145 06/07/2018 [facility] ELECTROLYTES eGFR 83 06/07/2018 Result Comment: The eGFR is calculated using the [...] from the National Kidney Disease Education Program (NKDEP) which additionally recommends that when the eGFR is used in patients with extremes of body mass index for purposes of drug dosing, the eGFR should be multiplied by the estimated BMI. [facility] ELECTROLYTES CO2 31 24 - 32 06/07/2018 [facility] ELECTROLYTES Calcium Lvl 9.1 8.5 - 10.5 06/07/2018 [facility] HEMATOLOGY MPV 11.4 7.4 - 10.4 06/07/2018 [facility] HEMATOLOGY MCHC 33.6 32.0 - 36.0 06/07/2018 [facility] HEMATOLOGY RDW 12.8 11.5 - 14.5 06/07/2018 [facility] HEMATOLOGY WBC 10.7 3.7 - 10.4 06/07/2018 [facility] HEMATOLOGY MCV 93.6 80.0 - 98.0 06/07/2018 [facility] HEMATOLOGY Hct 47.6 36.0 - 48.0 06/07/2018 [facility] HEMATOLOGY RBC 5.09 4.20 - 5.40 06/07/2018 [facility] Hgb 16.0 12.0 - 16.0 06/07/2018 [facility] MCH 31.4 27.0 - 31.0 06/07/2018 [facility] HEMATOLOGY Platelet 180 133 - 450 06/07/2018 [facility] HEMATOLOGY Large Plt Moderate *ABN* (06/07/18 7:25 AM) None Seen 06/07/2018 [facility] HEMATOLOGY Monocytes # 1.1 0.0 - 0.8 06/07/2018 [facility] HEMATOLOGY Eosinophils # 0.3 0.0 - 0.5 06/07/2018 [facility] HEMATOLOGY Lymphocytes # 3.2 1.0 - 5.5 06/07/2018 [facility] Eosinophils 2.4 0.0 - 4.0 06/07/2018 [facility] Lymphocytes 29.6 20.0 - 40.0 06/07/2018 [facility] Monocytes 10.6 2.0 - 12.0 06/07/2018 [facility] Segs 57.3 45.0 - 75.0 06/07/2018 [facility] RBC Morph Normal (06/07/18 7:25 AM) 06/07/2018 [facility] Basophils 0.1 0.0 - 1.0 06/07/2018 [facility] Neutrophils # 6.1 1.5 - 8.1 06/07/2018 [facility] URINALYSIS UA Urobilinogen 0.1 - 1.0 09/03/2012 [facility] URINALYSIS UA Color Ltyellow 09/03/2012 [facility] [place] URINALYSIS UA Sq Epi None Seen 09/03/2012 [facility] [place] URINALYSIS UA pH 8.0 5.0 - 8.0 09/03/2012 Normal [facility] URINALYSIS UA Turbidity Clear (09/03/2012 12:37:00) Clear 09/03/2012 [facility] [place] URINALYSIS UA Spec Grav 1.006 <=1.030 09/03/2012 Normal [place] URINALYSIS UA RBC 5 0 - 2 09/03/[address] [facility] [place] URINALYSIS UA Nitrite Negative (09/03/2012 12:37:00) Negative 09/03/2012 Normal [facility] [place] URINALYSIS UA Leuk Est Negative (09/03/2012 12:37:00) Negative 09/03/2012 Normal [facility] URINALYSIS UA WBC <1 0 - 5 09/03/2012 Normal [facility] URINALYSIS UA Blood Small *ABN* (09/03/2012 12:37:00) Negative 09/03/2012 ABN [facility] URINALYSIS UA Ketones Negative mg/dL *NA* (09/03/2012 12:37:00) Negative 09/03/2012 NA [facility] URINALYSIS UA Bili Negative *NA* (09/03/2012 12:37:00) Negative 09/03/2012 NA [facility] URINALYSIS UA Protein Negative mg/dL (09/03/2012 12:37:00) Negative 09/03/2012 Normal [facility] URINALYSIS UA Glucose Negative mg/dL *NA* (09/03/2012 12:37:00) Negative 09/03/2012 NA [facility] CHEMISTRY CK MB Index 0.6 0.0 - 2.5 09/03/2012 Normal [facility] CHEMISTRY CK MB 1.1 0.5 - 3.6 09/03/2012 Normal [facility] CHEMISTRY BNP 28 <=100 09/03/2012 Normal <sup>3</sup>Interpretive Data: Elevated results are in line with increasing severity of
congestive heart failure. Minor elevations between 100 and 300
may be seen with Myocardial Ischemia, Sodium retaining drugs,
and compensated/treated heart failure. [facility] CHEMISTRY Troponin-I <0.02 0.00 - 0.40 09/03/2012 Normal [facility] CHEMISTRY Total CK 180 12 - 191 09/03/2012 Normal [facility] CHEMISTRY Globulin 4.0 2.0 - 4.0 09/03/2012 Normal [facility] CHEMISTRY A/G Ratio 1.1 0.7 - 1.6 09/03/2012 Normal [facility] CHEMISTRY ALT 33 0 - 65 09/03/2012 Normal [facility] CHEMISTRY AST 45 0 - 37 09/03/2012 HI [facility] CHEMISTRY Alk Phos 86 39 - 136 09/03/2012 Normal [facility] CHEMISTRY Bili Total 0.8 0.2 - 1.3 09/03/2012 Normal [facility] CHEMISTRY Total Protein 8.3 6.4 - 8.4 09/03/2012 Normal [facility] CHEMISTRY eGFR 103 09/03/2012 NA <sup>1</sup>Result Comment: The eGFR is calculated using the CKD-EPI formula. In most young, healthy individuals the eGFR will be >90 mL/min/1.73m2. The eGFR declines with age. An eGFR of 60-89 may be normal in some populations, particularly the elderly, for whom the CKD-EPI formula has not been extensively validated. Use of the eGFR is not recommended in the following populations:& lt;br/>
Individuals with unstable creatinine concentrations, including patients and those with serious co-morbid conditions.

Patients with extremes in muscle mass or diet.

The data above are obtained from the National Kidney Disease Education Program (NKDEP) which additionally recommends that when the eGFR is used in patients with extremes of body mass index for purposes of drug dosing, the eGFR should be multiplied by the estimated BMI. [facility] CHEMISTRY B/C Ratio 22 6 - 25 09/03/2012 Normal [facility] CHEMISTRY AGAP 10.7 10.0 - 20.0 09/03/2012 Normal [facility] CHEMISTRY Albumin Lvl 4.3 3.5 - 5.0 09/03/2012 Normal [facility] CHEMISTRY Potassium Lvl 4.7 3.5 - 5.1 09/03/2012 Normal [facility] CHEMISTRY Calcium Lvl 9.4 8.5 - 10.5 09/03/2012 Normal [facility] CHEMISTRY Creatinine Lvl 0.4 0.5 - 1.4 09/03/2012 LOW [facility] CHEMISTRY Sodium Lvl 138 135 - 145 09/03/2012 Normal [facility] CHEMISTRY Chloride Lvl 102 95 - 109 09/03/2012 Normal [facility] CHEMISTRY CO2 30 24 - 32 09/03/2012 Normal [facility] CHEMISTRY BUN 9 7 - 22 09/03/2012 Normal [facility] CHEMISTRY Glucose Lvl 104 70 - 99 09/03/2012 [place] <sup>2</sup>Interpretive Data: Adult reference range values reflect the clinical guidelines
of the [place] [employer]. [facility] HEMATOLOGY Eosinophils 1.5 0.0 - 4.0 09/03/2012 Normal [facility] HEMATOLOGY Basophils 0.8 0.0 - 1.0 09/03/2012 Normal [facility] HEMATOLOGY Segs-Bands # 4.8 1.5 - 8.1 09/03/2012 Normal [facility] HEMATOLOGY Monocytes 7.3 2.0 - 12.0 09/03/2012 Normal [facility] HEMATOLOGY Lymphocytes 27.4 20.0 - 40.0 09/03/2012 Normal [facility] HEMATOLOGY Segs 63.0 45.0 - 75.0 09/03/2012 Normal [facility] HEMATOLOGY Eosinophils # 0.1 0.0 - 0.5 09/03/2012 Normal [facility] HEMATOLOGY Basophils # 0.1 0.0 - 0.2 09/03/2012 Normal [facility] HEMATOLOGY Monocytes # 0.6 0.0 - 0.8 09/03/2012 Normal [facility] HEMATOLOGY Lymphocytes # 2.1 1.0 - 5.5 09/03/2012 Normal [facility] HEMATOLOGY INR 0.92 0.85 - 1.17 09/03/2012 Normal <sup>4</sup>Interpretive Data: RECOMMENDED RANGES FOR PROTIME INR:
2.0-3.0 for most medical and surgical thromboembolic states.
2.5-3.5 for artificial heart valves and recurrent embolism.

INR SHOULD BE USED ONLY FOR PATIENTS ON STABLE ANTICOAGULANT THERAPY. [facility] HEMATOLOGY PT 12.6 12.0 - 14.7 09/03/2012 Normal [facility] PTT 23.1 22.9 - 35.8 09/03/2012 Normal <sup>5</sup>Interpretive Data: Heparin Therapeutic Range: 57 - 92 Seconds [facility] Platelet 180 133 - 450 09/03/2012 Normal [facility] MPV 11.2 7.4 - 10.4 09/03/2012 [facility] HEMATOLOGY RDW 13.0 11.5 - 14.5 09/03/2012 Normal [facility] HEMATOLOGY MCV 94.0 81.0 - 99.0 09/03/2012 Normal [facility] HEMATOLOGY Hct 45.6 36.0 - 48.0 09/03/2012 Normal [facility] HEMATOLOGY MCHC 33.2 32.0 - 36.0 09/03/2012 Normal [facility] HEMATOLOGY MCH 31.2 27.0 - 31.0 09/03/2012 [facility] HEMATOLOGY Hgb 15.1 12.0 - 16.0 09/03/2012 Normal [facility] RBC 4.85 4.20 - 5.40 09/03/2012 Normal [facility] HEMATOLOGY WBC 7.6 3.7 - 10.4 09/03/2012 Normal [facility] HEMATOLOGY PT 19.0 12.0 - 14.7 02/25/2011 [facility] HEMATOLOGY INR 1.61 0.85 - 1.17 02/25/2011 [place] <sup>1</sup>Interpretive Data: RECOMMENDED RANGES FOR PROTIME INR: 2.0- 3.0 for most medical and surgical thromboembolic states. 2.5-3.5 for artificial heart valves and recurrent embolism. INR SHOULD BE USED ONLY FOR PATIENTS ON STABLE ANTICOAGULANT THERAPY. [facility] HEMATOLOGY PTT 30.8 22.9 - 35.8 02/25/2011 Normal <sup>2</sup>Interpretive Data: Heparin Therapeutic Range: 57 - 92 Seconds [facility] HEMATOLOGY MPV 8.9 7.4 - 10.4 02/25/2011 Normal [facility] Platelet 458.0 133 - 450 02/25/2011 [facility] HEMATOLOGY RDW 17.4 11.5 - 14.5 02/25/2011 [facility] MCHC 34.0 32.0 - 36.0 02/25/2011 Normal [facility] MCH 33.1 27.0 - 31.0 02/25/2011 [facility] HEMATOLOGY MCV 97.3 81.0 - 99.0 02/25/2011 Normal [facility] HEMATOLOGY Hct 30.2 36.0 - 48.0 02/25/2011 LOW [facility] Hgb 10.3 12.0 - 16.0 02/25/2011 LOW [facility] HEMATOLOGY WBC 7.2 3.7 - 10.4 02/25/2011 Normal [facility] HEMATOLOGY RBC 3.1 4.20 - 5.40 02/25/2011 [facility] HEMATOLOGY Segs-Bands # 4.3 1.5 - 8.1 02/25/2011 Normal [facility] HEMATOLOGY Lymphocytes # 1.9 1.0 - 5.5 02/25/2011 Normal [facility] HEMATOLOGY Lymphocytes 26.0 20.0 - 40.0 02/25/2011 Normal [facility] HEMATOLOGY Monocytes 10.7 2.0 - 12.0 02/25/2011 Normal [facility] HEMATOLOGY Segs 59.3 45.0 - 75.0 02/25/2011 Normal [facility] HEMATOLOGY Eosinophils # 0.2 0.0 - 0.5 02/25/2011 Normal [facility] HEMATOLOGY Basophils # 0.1 0.0 - 0.2 02/25/2011 Normal [facility] HEMATOLOGY Basophils 1.6 0.0 - 1.0 02/25/2011 [facility] HEMATOLOGY Monocytes # 0.8 0.0 - 0.8 02/25/2011 Normal [facility] HEMATOLOGY Eosinophils 2.4 0.0 - 4.0 02/25/2011 Normal [facility] CHEMISTRY Globulin 3.0 2.0 - 4.0 02/14/2011 Normal [facility] CHEMISTRY A/G Ratio 1.0 0.7 - 1.6 02/14/2011 Normal [facility] CHEMISTRY AGAP 10.2 10.0 - 20.0 02/14/2011 Normal [facility] CHEMISTRY B/C Ratio 12.0 6 - 25 02/14/2011 Normal [facility] CHEMISTRY Calcium Lvl 8.8 8.5 - 10.5 02/14/2011 Normal [facility] CHEMISTRY CO2 30.0 24 - 32 02/14/2011 Normal [facility] CHEMISTRY Creatinine Lvl 0.6 0.5 - 1.4 02/14/2011 Normal [facility] CHEMISTRY BUN 7.0 7 - 22 02/14/2011 Normal [facility] CHEMISTRY Sodium Lvl 135.0 135 - 145 02/14/2011 Normal [facility] CHEMISTRY Chloride Lvl 98.0 95 - 109 02/14/2011 Normal [facility] CHEMISTRY Potassium Lvl 3.2 3.5 - 5.1 02/14/2011 LOW [facility] CHEMISTRY AST 29.0 0 - 37 02/14/2011 Normal [facility] CHEMISTRY Total Protein 5.9 6.4 - 8.4 02/14/2011 LOW [facility] CHEMISTRY ALT 29.0 0 - 65 02/14/2011 Normal [facility] CHEMISTRY Alk Phos 55.0 39 - 136 02/14/2011 Normal [facility] CHEMISTRY Bili Total 1.1 0.2 - 1.3 02/14/2011 Normal [facility] CHEMISTRY Albumin Lvl 2.9 3.5 - 5.0 02/14/2011 LOW [facility] CHEMISTRY Glucose Lvl 113.0 02/14/2011 NA <sup>1</sup>Interpretive Data: Reference Ranges : 0 - 7 days : 41 - 90 mg/dL 7 days - 150 yrs : 70 - 99 mg/dL (fasting), based on the clinical recommendations of the [place] [employer]. [facility] HEMATOLOGY D-Dimer 0.97 02/14/2011 NA <sup>3</sup>Interpretive Data: In DIC, quantitative D-Dimer is generally greater than 0.66 ug/mL FEU. Values of quantitative D-Dimer less than 0.40 ug/mL FEU have been reported to be associated with a low probability of deep vein thrombosis/pulmonary embolism. This test alone should not be used to rule out DVT/PE. [facility] Lymphocytes # 2.9 1.0 - 5.5 02/14/2011 Normal [facility] Segs-Bands # 7.0 1.5 - 8.1 02/14/2011 Normal [facility] Basophils 0.6 0.0 - 1.0 02/14/2011 Normal [facility] Eosinophils 1.1 0.0 - 4.0 02/14/2011 Normal [facility] Monocytes # 0.9 0.0 - 0.8 02/14/2011 HI [facility] Basophils # 0.1 0.0 - 0.2 02/14/2011 Normal [facility] Eosinophils # 0.1 0.0 - 0.5 02/14/2011 Normal [facility] Segs 63.5 45.0 - 75.0 02/14/2011 Normal [facility] Monocytes 8.5 2.0 - 12.0 02/14/2011 Normal [facility] Lymphocytes 26.3 20.0 - 40.0 02/14/2011 Normal [facility] PTT 28.4 22.9 - 35.8 02/14/2011 Normal <sup>4</sup>Interpretive Data: Heparin Therapeutic Range: 57 - 92 Seconds [facility] PT 13.2 12.0 - 14.7 02/14/2011 Normal [facility] INR 0.98 0.85 - 1.17 02/14/2011 Normal <sup>2</sup>Interpretive Data: RECOMMENDED RANGES FOR PROTIME INR: 2.0-3.0 for most medical and surgical thromboembolic states. 2.5-3.5 for artificial heart valves and recurrent embolism. INR SHOULD BE USED ONLY FOR PATIENTS ON STABLE ANTICOAGULANT THERAPY. [facility] MPV 10.1 7.4 - 10.4 02/14/2011 Normal [facility] RDW 12.8 11.5 - 14.5 02/14/2011 Normal [facility] Platelet 245.0 133 - 450 02/14/2011 Normal [facility] Hgb 7.4 12.0 - 16.0 02/14/2011 LOW [facility] MCV 94.0 81.0 - 99.0 02/14/2011 Normal [facility] Hct 21.4 36.0 - 48.0 02/14/2011 LOW [facility] HEMATOLOGY WBC 11.1 3.7 - 10.4 02/14/2011 HI [facility] HEMATOLOGY MCH 32.7 27.0 - 31.0 02/14/2011 [facility] HEMATOLOGY MCHC 34.8 32.0 - 36.0 02/14/2011 Normal [facility] HEMATOLOGY RBC 2.27 4.20 - 5.40 02/14/2011 LOW [facility] Pathology Reports No Data Provided for This Section Diagnostic Reports Report Value Date Source Chest 2 views DX PROCEDURE: Chest, PA and lateral radiographs, 2 views. INDICATION: Coughing - Preoperative evaluation. COMPARISON: Chest radiographs dated 09/03/2012 and 03/22/2011. FINDINGS: No pleural effusion or pneumothorax. Lungs are clear without venous congestion or infiltrates. Cardiac silhouette is not enlarged. Lungs are well- expanded. Stable surgical clips overlie the right axillary region. Mild to moderate degenerative disc disease. No acute bony abnormality. Inferior vena cava filter overlies the medial right abdomen. IMPRESSION: 1. No radiographic evidence for an acute cardiopulmonary process. SL: [id number] 06/07/2018 [facility] Shoulder wo contrast MRI MRI of the RIGHT shoulder INDICATION: Right shoulder pain. COMPARISON: No prior studies available for comparison. TECHNIQUE: Axial, oblique coronal, and oblique sagittal MR images of the shoulder. IV contrast: None. FINDINGS: Motion degraded study. ROTATOR CUFF AND ASSOCIATED STRUCTURES Rotator cuff: There is severe diffuse supraspinatus tendon thinning. There is a full-thickness supraspinatus tendon tear, which is nearly full width. There are varying degrees of tendon retraction given the severe fraying and thinning of the supraspinatus tendon. However, overall is approximately 1 cm medial tendon retraction. There is also severe fraying of the infraspinatus tendon with diffuse tendon thinning. No definitive full-thickness infraspinatus tendon tear. No definitive full-thickness tear of the subscapularis and teres minor tendons. Bursa: Moderate amount of subacromial-subdeltoid bursal fluid with debris. Musculature: There is global decreased muscle bulk. Most likely muscle atrophy noted of the supraspinatus tendon. Acromioclavicular joint: There are moderate degenerative changes of the acromioclavicular joint. A type 3 acromion configuration is noted. There is no anterior or lateral acromial downsloping. There is a subacromial spur. OSSEOUS STRUCTURES No evidence of acute fracture. There are scattered degenerative cystic changes in the bones. There is marrow edema in the humeral head. LONG BICIPITAL TENDON There is a complete, full-thickness tear of the biceps tendon within the glenoid humeral joint. There are tendon fragments identified within the bicipital groove. GLENOHUMERAL JOINT Joint fluid: There is a moderate glenohumeral joint effusion with synovitis and debris. Cartilage and Bone: There is full-thickness chondral loss along the glenoid. There is associated underlying moderate subarticular cystic changes and marrow edema. There are osteophytes. Labrum: There is diffuse degenerative tearing of the labrum. Other support structures: No capsular or ligamentous abnormality is seen. IMPRESSION: Motion degraded study. 1. Severe thinning of the supraspinatus tendon, with a full-thickness, near full width tear of the supraspinatus tendon. Associated medial tendon retraction. 2. Severe fraying and thinning of the infraspinatus tendon. 3. Moderate AC joint arthrosis. Type III acromion with a subacromial spur. Moderate subacromial-subdeltoid bursitis. 4. Full-thickness biceps tendon tear. 5. Moderate glenohumeral effusion with synovitis. Glenohumeral arthrosis with full- thickness chondral loss along the glenoid. Associated subarticular cystic changes and marrow edema. 6. Diffuse degenerative tearing of the labrum. SL: [id number] 06/02/2018 [facility] Breast Mammo Scrn [place] incl CAD OR BILATERAL DIGITAL SCREENING MAMMOGRAM WITH CAD: 07/27/2017 CLINICAL: /Routine. Current study was evaluated with a Computer Aided Detection (CAD) system. COMPARISON:Comparison is made to exams dated: 09/07/2015 mammogram, 10/17/2013 mammogram, 05/14/2012 mammogram, 04/28/2011 mammogram, 04/14/2010 mammogram, and 03/30/2010 mammogram - [facility]. TECHNIQUE: Mammographic views were obtained using digital acquisition. gumi Version 1.3 was utilized for computer aided detection. FINDINGS: There are scattered fibroglandular densities in both breasts. The patient is status post lumpectomy right breast. There are post operative and radiation changes in the right breast. There are benign vascular calcifications and calcifications in both breasts. No significant masses, calcifications, or other findings are seen in either breast. There has been no significant interval change. IMPRESSION: BENIGN RECOMMENDATION:The patient is status post lumpectomy right breast. There is no mammographic evidence of malignancy. A 1 year screening mammogram is recommended.(07/28/2018) This exam was interpreted at [id number] for [facility]. Nick sierra/penrad:07/27/2017 16:14:38 Svp Programmatic Tv(s): Kristal Hauser, [facility] letter sent: BI-RADS 1/2 Dense Mammogram BI-RADS: 2 Benign 07/27/2017 [facility] Bone Density Scan Patient Name: CHRISTEN ASH : 1940; Age: 77 years y/o Female MR: [id number] Study: Bone Density Scan 07/27/2017 1:19 PM RESOLUTION AGENT Clinical Indication: - Z12.31 Encounter for screening mammogram for malignant neoplasm of breast. COMPARISON: November 06, 2008 FINDINGS: The left forearm bone mineral density is 69% of the expected age matched bone mass with a T-score -3.5. Axial lumbar average BMD is 0.39 g/cm2. The left femoral neck bone mineral density is 83% of the expected age matched bone mass with a T-score of -1.3. Left femoral neck BMD is 0.70 g/cm2. The total femoral BMD is 0.79 g/cm2. This is decreased 13.4% from the prior exam. IMPRESSION: 1. Osteoporosis of the left forearm. 2. Osteopenia of the left femoral neck. The World Health Organization has established that OSTEOPOROSIS occurs at -2.5 or more standard deviations (SD) below peak bone mass. OSTEOPENIA (low bone mass) occurs at -1.0 standard deviations to -2.5 standard deviations below peak bone mass. SL: [id number] 07/27/2017 [facility] Digital Mammo Screening Maurice MA - DIGITAL MAMMO SCREENING [place] MA BILATERAL DIGITAL SCREENING MAMMOGRAM WITH CAD: 09/07/2015 CLINICAL: Other Screening Mammogram. Current study was evaluated with a Computer Aided Detection (CAD) system. Comparison is made to exams dated: 10/17/2013 mammogram, 05/14/2012 mammogram, 04/28/2011 mammogram, 04/14/2010 mammogram, 03/30/2010 mammogram and 11/06/2008 mammogram - [facility]. There are scattered fibroglandular densities in both breasts. The patient is status post lumpectomy right breast. There are post operative changes in the right breast. There are benign vascular calcifications and calcifications in both breasts. No significant masses, calcifications, or other findings are seen in either breast. There has been no significant interval change. IMPRESSION: BENIGN The patient is status post lumpectomy right breast. There is no mammographic evidence of malignancy. A 1 year screening mammogram is recommended. Nguyễn Sumner M.D. ap/penrad:09/08/2015 08:50:39 Svp Programmatic Tv: Eden Corrales, [facility] This exam was dictated and interpreted by [id number] for [facility]. letter sent: Normal exam Mammogram BI-RADS: 2 Benign 09/07/2015 [facility] Digital Mammo Screening [place] MA - DIGITAL MAMMO SCREENING [place] BILATERAL DIGITAL SCREENING MAMMOGRAM WITH CAD: 10/17/2013 CLINICAL: Routine. Current study was evaluated with a Computer Aided Detection (CAD) system. Comparison is made to exams dated: 05/14/2012 mammogram, 04/28/2011 mammogram, 04/14/2010 mammogram, 03/30/2010 mammogram, 11/24/2008 mammogram and 02/22/2007 mammogram - [facility]. There are scattered fibroglandular densities in both breasts. The patient is status post lumpectomy right breast. There are post operative and radiation changes in the right breast. There are benign vascular calcifications and calcifications in both breasts. No significant masses, calcifications, or other findings are seen in either breast. There has been no significant interval change. IMPRESSION: BENIGN The patient is status post lumpectomy right breast. There is no mammographic evidence of malignancy. A screening mammogram in one year is recommended. Nick Machuca M.D. jt/penrad:10/20/2013 08:06:26 Svp Programmatic Tv: Maryam Sutherland, [facility] This exam was dictated and interpreted by [id number] for [facility]. letter sent: Normal exam Mammogram BI-RADS: 2 Benign 10/17/2013 [facility] Spine lumbar wo contrast MRI PROCEDURE: Spine lumbar wo contrast MRI CLINICAL INDICATION: DJD SPINE 722.52, ABN XRAY 793.7 COMPARISON: 03/13/2011. X-ray 06/05/2011. FINDINGS: There is retrolisthesis of L2 on L3 measuring 3 mm. Anterolisthesis of L5 on S1 measures 9 mm. Posterior L5-S1 fusion is again noted. Disc desiccation signal and loss of height involves L2-L3 and L1-L2. The lumbar spine vertebral body heights and marrow signal are normal. The conus ends at L1. There is no evidence for compression fracture, discitis/ osteomyelitis, or focal interosseous lesion. L5-S1: There is no spinal stenosis. There is severe bilateral neural foraminal stenosis with moderate facet arthritic change. L4-L5: There is no spinal stenosis. There is a small broad-based disc bulge. The right foramen is patent. The left foramen is patent. There is mild facet arthritic change bilaterally. L3-L4: There is no spinal stenosis. There is a small broad-based disc bulge. The bilateral foramen are mildly narrowed. There is moderate facet arthritic change bilaterally. L2-L3: There is no spinal stenosis. There is a central disc osteophyte complex. The bilateral foramen are moderately narrowed. There is mild facet arthritic change bilaterally. L1-L2: There is no spinal stenosis. There is a small broad-based disc bulge. The right foramen is patent. The left foramen is patent. There is mild facet arthritic change bilaterally. T12-L1: There is no spinal stenosis. The right foramen is patent. The left foramen is patent. There is no facet arthritic change bilaterally. There is no renal hydronephrosis. The visualized aorta is normal in caliber. IMPRESSION: 1. Postsurgical change of L5 on S1 with anterolisthesis similar to the prior exam. 2. Retrolisthesis of L2 on L3 similar to the prior exam. SL: 13 02/19/2013 [facility] Consultation Notes No Data Provided for This Section Discharge Summaries No Data Provided for This Section History and Physicals No Data Provided for This Section Vital Signs Vital Sign Value Date Comments Source Respitory Rate 14 06/11/2018 [facility] Systolic (mm Hg) 158 06/11/2018 [facility] Diastolic (mm Hg) 96 06/11/2018 [facility] Systolic (mm Hg) 161 06/11/2018 [facility] Diastolic (mm Hg) 80 06/11/2018 [facility] Respitory Rate 13 06/11/2018 [facility] Temperature Oral (F) 97.4 F 06/07/2018 [facility] Heart Rate 73 06/07/2018 [facility] BMI Calculated 24.84 06/07/2018 [facility] Weight 61.591 06/07/2018 [facility] Height 157.48 cm 06/07/2018 [facility] Weight 70.455 09/03/2012 [facility] Height 157.48 cm 09/03/2012 [facility] Systolic (mm Hg) 124.0 02/25/2011 [facility] Diastolic (mm Hg) 81.0 02/25/2011 [facility] Respitory Rate 18.0 02/25/2011 [facility] Peripheral Pulse Rate 81.0 02/25/2011 [facility] Temperature Oral (F) 98.1 F 02/25/2011 [facility] Peripheral Pulse Rate 75.0 02/25/2011 [facility] Diastolic (mm Hg) 72.0 02/25/2011 [facility] Systolic (mm Hg) 116.0 02/25/2011 [facility] Respitory Rate 16.0 02/25/2011 [facility] Height 157.48 cm 02/24/2011 [facility] Weight 66.818 02/24/2011 [facility] Temperature Oral (F) 97.7 F 02/24/2011 [facility] Respitory Rate 18.0 02/24/2011 [facility] Diastolic (mm Hg) 79.0 02/24/2011 [facility] Peripheral Pulse Rate 98.0 02/24/2011 [facility] Systolic (mm Hg) 157.0 02/24/2011 [facility] Temperature Oral (F) 98.4 F 02/14/2011 [facility] Diastolic (mm Hg) 65.0 02/14/2011 [facility] Respitory Rate 18.0 02/14/2011 [facility] Peripheral Pulse Rate 94.0 02/14/2011 [facility] Systolic (mm Hg) 118.0 02/14/2011 [facility] Systolic (mm Hg) 113.0 02/14/2011 [facility] Diastolic (mm Hg) 67.0 02/14/2011 [facility] Peripheral Pulse Rate 96.0 02/14/2011 [facility] Respitory Rate 18.0 02/14/2011 [facility] Respitory Rate 18.0 02/14/2011 [facility] Peripheral Pulse Rate 103.0 02/14/2011 [facility] Diastolic (mm Hg) 56.0 02/14/2011 [facility] Systolic (mm Hg) 108.0 02/14/2011 [facility] Weight 66.818 02/13/2011 [facility] Height 157.48 cm 02/13/2011 [facility] Temperature Oral (F) 98.4 F 02/13/2011 [facility] Encounters Location Location Details Encounter Type Encounter Number Reason For Visit Attending Provider ADM Date DC Date Status Source [facility] Outpatient [id number] HYPERTENSION . POPEYE MCCALL 02/03/2011 02/03/2011 Active [facility] [id number] LEG PAIN . LILIA LONDONO JR 02/13/2011 02/13/2011 Active [facility] [id number] BLAS VELÁZQUEZER 02/24/2011 02/24/2011 Discharged [facility] Inpatient [id number] CELLULITIS LOW BACK POPEYE MCCALL 03/13/2011 03/23/2011 Active [facility] Outpatient [id number] ROUTINE POPEYE MCCALL 04/28/2011 04/28/2011 Active [facility] Outpatient [id number] STAT* LEFT POPLITEAL DVT POPEYE MCCALL 06/05/2011 Active [facility] Outpatient [id number] ROUTINE SCREENING POPEYE MCCALL 05/14/2012 05/14/2012 Active [facility] [id number] HOWARD ISAIAS 09/03/2012 09/03/2012 Discharged [facility] Outpatient [id number] 793.7=ABN FIND-MUSCULOSKEL SYS/722.52=DDD (DEGENERATIVE POPEYE MCCALL 02/19/2013 Active [facility] Outpatient [id number] Popeye Mccall 10/17/2013 10/18/2013 [facility] Outpatient [id number] Gorge Winter 09/07/2015 09/08/2015 [facility] Outpatient [id number] Gorge Winter 07/27/2017 07/28/2017 [facility] Outpatient [id number] Gorge Winter 06/03/2018 06/03/2018 [facility] Day Surgery [id number] Enoch Junior 06/11/2018 06/11/2018 [facility] [place] [facility] [id number] Gorge Winter 06/12/2018 06/12/2018 [facility] [place] [facility] Patients [id number] Enoch Junior 07/03/2018 08/02/2018 [facility] [place] Departed Emergency Room [id number] TERESA ANDERSON MD 08/04/2018 08/04/2018 [facility] [place] [facility] Patients [id number] Enoch Junior 08/07/2018 09/06/2018 [facility] [place] [facility] [place] [facility] [id number] Enoch Junior 09/06/2018 10/06/2018 [facility] [place] Procedures Procedure Code Date Perfomer Comments Source Emergency department visit for the evaluation and management of a patient, which requires these 3 smith components: A detailed history; A detailed examination; and Medical decision making of moderate complexity. Counseling and/or coordination of care with o [id number] 02/24/2011 [facility] Introduction of needle or intracatheter, vein [id number] 02/24/2011 [facility] Venous Catheterization, Not Elsewhere Classified [id number] 02/24/2011 [facility] Emergency department visit for the evaluation and management of a patient, which requires these 3 smith components within the constraints imposed by the urgency of the patient's clinical condition and/or mental status: A comprehensive history; A comprehensi [id number] 02/13/2011 [facility] Injection or Infusion of Other Therapeutic or Prophylactic Substance [id number] 02/13/2011 [facility] Therapeutic, prophylactic, or diagnostic injection (specify substance or drug); intravenous push, single or initial substance/drug [id number] 02/13/2011 [facility] [id number] [facility] Insertion of inferior vena caval filter [id number] [facility] Lumbar and lumbosacral fusion by posterior technique [id number] [facility] mastectomy of left breast [id number] [facility] Assessment and Plan No Data Provided for This Section Plan of Care Plan of Care Date Source Discharge Date 08/04/18 7:30am Disposition HOME, SELF-CARE Condition at Discharge Stable Instructions/Education Provided Rash - Nonspecific Forms Provided Work/School Excuse Prescriptions See Medication Section Referrals [place] Additional Instructions/Education TAKE MEDICATION PRESCRIBED. FOLLOW UP WITH PRIMARY CARE DOCTOR. 08/04/2018 [facility] Social History Social History Date Source Smoking Status Start Date Stop Date Never Smoker 08/04/2018 [facility] Social History TypeResponse Alcohol Past Smoking Status Former smoker; Exposure to Tobacco Smoke None; Cigarette Smoking Last 365 Days No; Reg Smoking Cessation Counseling No entered on: 06/11/18 06/07/2018 [facility] Social History TypeResponse Alcohol Past Smoking Status Former smoker; Exposure to Tobacco Smoke None; Cigarette Smoking Last 365 Days No; Reg Smoking Cessation Counseling No entered on: 06/11/18 06/07/2018 [facility] Social History TypeResponse Alcohol Past Smoking Status Former smoker; Exposure to Tobacco Smoke None; Cigarette Smoking Last 365 Days No; Reg Smoking Cessation Counseling No entered on: 06/11/18 06/07/2018 [facility] [place] Family History No Data Provided for This Section Advance Directives Order Name Results Value Date Source Advance Directives Advance Directives Directive Response Recorded Date/Time Does the patient have an advance directive? Yes 01/21/15 1:30pm If yes, is advance directive on file with [facility]? No 01/21/15 1:24pm If not on file with [facility] will patient provide a copy? Yes 08/04/18 5:02am Do you have a Directive to Physician? No 08/04/18 5:02am Do you have a Medical Power of Pulp Grinder And Blender? No 08/04/18 5:02am Do you have an out of hospital Do Not Resuscitate Order? No 08/04/18 5:02am Do you have any special needs we should be aware of? No 08/04/18 5:02am Do you have a support person here with you today? Yes 08/04/18 5:02am Did patient receive Notice of Privacy Practices? Yes 08/04/18 5:02am Did patient receive patient rights and responsibilities? Yes 08/04/18 5:02am 08/04/2018 [facility] Functional Status No Data Provided for This Section
--- OUTSIDE RECORDS SUMMARY | 2019-02-25 07:25 | XMS REPORT | CCD ---
Author Author Auto Generated Organization [facility] Address Unknown Phone Unavailable Care Team Providers Care Senior Foreman Name Role Phone CP Unavailable Allan Chavez CP Pedrito Garay CP Unavailable Nichelle Harman CP Unavailable Brie Oro CP ChartServer, Login CP Unavailable Praneeth Escobar Jr CP Maryann Mendez CP [phone] Tobias Gonzalez CP Unavailable Asheligh Thomas CP [phone] John Velez CP Unavailable SYSTEM, SYSTEM CP Unavailable Roberto Carlos Polk CP Diamond Boykin CP Unavailable Allergies, Adverse Reactions, Alerts Substance Reaction Status all cholesterol meds ?? Active all diuretics ?? Active Lipitor ?? Active Neosporin ?? Active Medications Medication Instructions Start Date End Date Status potassium chloride 40 mEq, Route: PO, Drug form: 02/13/2011 02/13/2011 Completed ERTAB, ONCE, Priority: STAT, Start date: 02/13/11 20:59:00, Stop date: 02/13/11 20:59:00 Lortab 5/500 oral 1 tab, Route: PO, Drug Form: TAB, 02/13/2011 02/13/2011 Completed tablet ONCE, PRN Pain, STAT, Start date: 02/13/11 20:36:00 Tylenol 1,000 mg, 2 tab, Route: PO, Drug 02/13/2011 02/13/2011 Completed form: TAB, ONCE, PRN Pain, Priority: STAT, Start date: 02/13/11 20:45:00 Zofran 4 mg, Route: IVP, Drug form: INJ, 02/13/2011 02/13/2011 Completed ONCE, Priority: STAT, Start date: 02/13/11 20:50:00, Stop date: 02/13/11 20:50:00 morphine Sulfate 2 mg, Route: IV, ONCE, Start date: 02/13/2011 02/13/2011 Completed 02/13/11 20:51:00, Stop date: 02/13/11 20:51:00 Vital Signs Most recent to oldest [Reference Range]: 1 2 3 Height 157.48 cm (02/13/2011 18:58:00) ? Temperature Oral [96.4-99.1 DegF] 98.4 DegF (02/13/2011 23:35:00) ?? 98.4 DegF (02/13/2011 18:58:00) ? Systolic Blood Pressure [90-140 mmHg] 118 mmHg (02/13/2011 23:35:00) ?? 113 mmHg (02/13/2011 22:00:00) ?? 108 mmHg (02/13/2011 20:36:00) ?? Diastolic Blood Pressure [60-90 mmHg] 65 mmHg (02/13/2011 23:35:00) ?? 67 mmHg (02/13/2011 22:00:00) ?? 56 mmHg *LOW* (02/13/2011 20:36:00) ?? Respiratory Rate [14-20 BRMIN] 18 BRMIN (02/13/2011 23:35:00) ?? 18 BRMIN (02/13/2011 22:00:00) ?? 18 BRMIN (02/13/2011 20:36:00) ?? Peripheral Pulse Rate [60-100 bpm] 94 bpm (02/13/2011 23:35:00) ?? 96 bpm (02/13/2011 22:00:00) ?? 103 bpm *HI* (02/13/2011 20:36:00) ?? Weight 66.818 kg (02/13/2011 18:58:00) ? Results CHEMISTRY Most recent to oldest [Reference Range]: 1 Sodium Lvl [135-145 mEq/L] 135 mEq/L (02/13/2011 19:30:00) ?? Potassium Lvl [3.5-5.1 mEq/L] 3.2 mEq/L *LOW* (02/13/2011:30:00) ?? Chloride Lvl [95-109 mEq/L] 98 mEq/L (02/13/2011:30:00) ?? CO2 [24-32 mEq/L] 30 mEq/L (02/13/2011:30:00) ?? AGAP [10.0-20.0 mEq/L] 10.2 mEq/L (02/13/2011:30:00) ?? Creatinine Lvl [0.5-1.4 mg/dL] 0.6 mg/dL (02/13/2011:30:00) ?? BUN [7-22 mg/dL] 7 mg/dL (02/13/2011:30:00) ?? B/C Ratio [6-25] 12 (02/13/2011:30:00) ?? Glucose Lvl 113 mg/dL 1 *NA* (02/13/2011:30:00) ?? Total Protein [6.4-8.4 g/dL] 5.9 g/dL *LOW* (02/13/2011:30:00) ?? Albumin Lvl [3.5-5.0 g/dL] 2.9 g/dL *LOW* (02/13/2011:30:00) ?? Globulin [2.0-4.0 g/dL] 3.0 g/dL (02/13/2011:30:00) ?? A/G Ratio [0.7-1.6] 1.0 (02/13/2011:30:00) ?? Calcium Lvl [8.5-10.5 mg/dL] 8.8 mg/dL (02/13/2011:30:00) ?? ALT [0-65 U/L] 29 U/L (02/13/2011:30:00) ?? AST [0-37 U/L] 29 U/L (02/13/2011:30:00) ?? Alk Phos [39-136 U/L] 55 U/L (02/13/2011:30:00) ?? Bili Total [0.2-1.3 mg/dL] 1.1 mg/dL (02/13/2011:30:00) ?? 1Interpretive Data: Reference Ranges : 0 - 7 days : 41 - 90 mg/dL7 days - 150 yrs : 70 - 99 mg/dL (fasting), based on the clinical recommendations of the [place] [employer]. HEMATOLOGY Most recent to oldest [Reference Range]: 1 WBC [3.7-10.4 K/CMM] 11.1 K/CMM *HI* (02/13/2011:30:00) ?? RBC [4.20-5.40 M/CMM] 2.27 M/CMM *LOW* (02/13/2011:30:00) ?? Hgb [12.0-16.0 g/dL] 7.4 g/dL *LOW* (02/13/2011:30:00) ?? Hct [36.0-48.0 %] 21.4 % *LOW* (02/13/2011:30:00) ?? MCV [81.0-99.0 fL] 94.0 fL (02/13/2011:30:00) ?? MCH [27.0-31.0 pg] 32.7 pg *HI* (02/13/2011:30:00) ?? MCHC [32.0-36.0 g/dL] 34.8 g/dL (02/13/2011:30:00) ?? RDW [11.5-14.5 %] 12.8 % (02/13/2011:30:00) ?? Platelet [133-450 K/CMM] 245 K/CMM (02/13/2011:30:00) ?? MPV [7.4-10.4 fL] 10.1 fL (02/13/2011:30:00) ?? Segs [45.0-75.0 %] 63.5 % (02/13/2011:30:00) ?? Lymphocytes [20.0-40.0 %] 26.3 % (02/13/2011:30:00) ?? Monocytes [2.0-12.0 %] 8.5 % (02/13/2011:30:00) ?? Eosinophils [0.0-4.0 %] 1.1 % (02/13/2011:30:00) ?? Basophils [0.0-1.0 %] 0.6 % (02/13/2011:30:00) ?? Segs-Bands # [1.5-8.1 K/CMM] 7.0 K/CMM (02/13/2011:30:00) ?? Lymphocytes # [1.0-5.5 K/CMM] 2.9 K/CMM (02/13/2011:30:00) ?? Monocytes # [0.0-0.8 K/CMM] 0.9 K/CMM *HI* (02/13/2011:30:00) ?? Eosinophils # [0.0-0.5 K/CMM] 0.1 K/CMM (02/13/2011:30:00) ?? Basophils # [0.0-0.2 K/CMM] 0.1 K/CMM (02/13/2011:30:00) ?? PT [12.0-14.7 seconds] 13.2 seconds (02/13/2011:30:00) ?? INR [0.85-1.17] 0.98 2 (02/13/2011:30:00) ?? D-Dimer 0.97 ug/mL FEU 3 *NA* (02/13/2011:30:00) ?? PTT [22.9-35.8 seconds] 28.4 seconds 4 (02/13/2011:30:00) ?? 2Interpretive Data: RECOMMENDED RANGES FOR PROTIME INR: 2.0-3.0 for most medical and surgical thromboembolic states. 2.5-3.5 for artificial heart valves and recurrent embolism.INR SHOULD BE USED ONLY FOR PATIENTS ON STABLE ANTICOAGULANT THERAPY. 3Interpretive Data: In DIC, quantitative D-Dimer is generally greater than 0.66 ug/mL FEU. Values of quantitative D-Dimer less than 0.40 ug/mL FEU have been reported to be associated with a low probability of deep vein thrombosis/pulmonary embolism. This test alone should not be used to rule out DVT/PE. 4Interpretive Data: Heparin Therapeutic Range: 57 - 92 Seconds Procedures Procedures Date Related Diagnosis Emergency department visit for the evaluation and management 02/13/2011 00:00:00 ?? of a patient, which requires these 3 smith components within the constraints imposed by the urgency of the patient's clinical condition and/or mental status: A comprehensive history; A comprehensi Injection or Infusion of Other Therapeutic or Prophylactic 02/13/2011 00:00:00 ?? Substance Therapeutic, prophylactic, or diagnostic injection (specify 02/13/2011 00:00:00 ?? substance or drug); intravenous push, single or initial substance/drug
--- OUTSIDE RECORDS SUMMARY | 2019-02-25 07:25 | XMS REPORT | CCD ---
Author Author Auto Generated Organization [facility] Address Unknown Phone Unavailable Care Team Providers Care Green Jobs Trainer Name Role Phone RamoneJeana CP Unavailable True Mccall Cathi CP Jennifer Turner CP Unavailable Sirena Blankenship CP Unavailable Nichelle Harman CP Unavailable Aparna Lima CP Unavailable Brie Oro CP ChartServer, Login CP Unavailable Ashleigh Thomas CP [phone] SYSTEM, SYSTEM CP Unavailable Carl Pace CP [phone] Roberto Carlos Polk CP Diamond Boykin CP [...]
--- OUTSIDE RECORDS SUMMARY | 2019-02-25 07:25 | XMS REPORT | CCD ---
Author Author Auto Generated Organization [facility] Address Unknown Phone Unavailable Care Team Providers Care Relationship Assoc Name Role Phone CP Unavailable Han, Nirali CP [phone] Jeana Pack CP Unavailable MccallTrue goldberg Cathi CP Jennifer Turner CP Unavailable Sirena Blankenship CP Unavailable Nichelle Harman CP Unavailable Aparna Lima CP Unavailable Brie Oro CP ChartServer, Login CP Unavailable Ashleigh Thomas CP [phone] SYSTEM, SYSTEM CP Unavailable Carl Pace CP [phone] Roberto Carlos Polk CP Diamond Boykin CP [...]
--- OUTSIDE RECORDS SUMMARY | 2019-02-25 07:26 | XMS REPORT | Summary of Care ---
Author Author [facility] Organization [facility] Address Unknown Phone Unavailable Encounter HQ Scooter(JUS) [id number] Date(s): 06/11/18 - 06/11/18 [facility] [address] [place] [address]- [phone] Encounter Diagnosis Complete rotator cuff tear or rupture of right shoulder, not specified as trauma tic (Final) - 06/16/18 Impingement syndrome of right shoulder (Final) - Strain of muscle, fascia and tendon of other parts of biceps, right arm, initial encounter (Final) - Superior glenoid labrum lesion of right shoulder, initial encounter (Final) - Sprain of unspecified parts of right shoulder girdle, initial encounter (Final) - Primary osteoarthritis, right shoulder (Final) - Loose body in right shoulder (Final) - Personal history of nicotine dependence (Final) - Other long term care social worker (current) drug therapy (Final) - Essential (primary) hypertension (Final) - Hypothyroidism, unspecified (Final) - Allergy status to other drugs, medicaments and biological substances status (Final) - Discharge Disposition: Home or Self Care Attending Physician: Enoch Junior Referring Physician: Enoch Junior Vital Signs 1 2 3 Most recent to oldest [Reference Range]: 157.48 cm (06/07/18 7:03 AM) Height 97.4 DegF (06/07/18 7:10 AM) Temperature Oral [96.4-99.1 DegF] 158/96 mmHg *HI* (06/11/18 5:00 PM) 161/80 mmHg *HI* (06/11/18 4:30 PM) 160/65 mmHg *HI* (06/11/18 4:30 PM) Blood Pressure [90-140/60-90 mmHg] 14 BRMIN (06/11/18 5:00 PM) 13 BRMIN *LOW* (06/11/18 4:30 PM) 13 BRMIN *LOW* (06/11/18 4:30 PM) Respiratory Rate [14-20 BRMIN] 73 bpm (06/07/18 7:10 AM) Peripheral Pulse Rate [60-100 bpm] 61.591 kg (06/07/18 7:03 AM) Weight 24.84 m2 (06/07/18 7:03 AM) Body Mass Index Problem List Condition Effective Dates Status Health [...] meds Active Neosporin Active Lipitor Active Medications acetaminophen (ANES) Route: IV, Drug form: INJ, ONCE, Stop date: 06/11/18 15:44:00 BRANCH SERVICE REPRESENTATIVE Start Date: 06/11/18 Stop Date: 06/11/18 Status: Completed acetaminophen-hydrocodone 325 mg-5 mg oral tablet 1 tab, Route: PO, Dosing Weight 61.591, kg, ONCE, Start date: 06/11/18 15:42:00 BRANCH SERVICE REPRESENTATIVE, Stop date: 06/11/18 15:42:00 BRANCH SERVICE REPRESENTATIVE, .. Start Date: 06/11/18 Stop Date: 06/21/18 Status: Discontinued acetaminophen-hydrocodone 325 mg-5 mg oral tablet Route: PO, Dosing Weight 61.591, kg, Q4H, PRN Pain Score 4-6, Start date: 15:42:00 BRANCH SERVICE REPRESENTATIVE, Duration: 30 day, Stop date: 07/11/18 15:41:00 BRANCH SERVICE REPRESENTATIVE Start Date: 06/11/18 Stop Date: 06/12/18 Status: Discontinued ceFAZolin (ANES) Route: IV, Drug form: INJ, ONCE, Stop date: 06/11/18 15:44:00 BRANCH SERVICE REPRESENTATIVE Start Date: 06/11/18 Stop Date: 06/11/18 Status: Completed famotidine (ANES) Route: IV, Drug form: INJ, ONCE, Stop date: 06/11/18 15:44:00 BRANCH SERVICE REPRESENTATIVE Start Date: 06/11/18 Stop Date: 06/11/18 Status: Completed glycopyrrolate (ANES) Route: IV, Drug form: INJ, ONCE, Stop date: 06/11/18 16:02:00 BRANCH SERVICE REPRESENTATIVE Start Date: 06/11/18 Stop Date: 06/11/18 Status: Completed hydromorphone 0.3 mg, Route: IVP, Q3H, Dosing Weight 61.591, kg, PRN Pain Score 4-6, Start katty e: 06/11/18 15:42:00 BRANCH SERVICE REPRESENTATIVE, Duration: 30 day, Stop date: 07/11/18 15:41:00 BRANCH SERVICE REPRESENTATIVE Start Date: 06/11/18 Stop Date: 06/12/18 Status: Discontinued Keflex 500 mg, Route: PO, Drug form: CAP, QID, Dosing Weight 61.591, kg, Start date: 17:00:00 BRANCH SERVICE REPRESENTATIVE, Duration: 30 day, Stop date: 07/11/18 13:00:00 BRANCH SERVICE REPRESENTATIVE Start Date: 06/11/18 Stop Date: 06/12/18 Status: Discontinued Keflex 500 mg oral capsule 500 mg=1 cap, PO, QID, X 10 day, # 40 cap, 0 Refill(s) Start Date: 06/10/18 Stop Date: 06/20/18 Status: Completed Lactated Ringers Injection IV (ANES) 1000 mL Route: IV, Total Volume: 1,000, Start date: 06/11/18 14:44:00 BRANCH SERVICE REPRESENTATIVE, Stop date: 15:44:00 BRANCH SERVICE REPRESENTATIVE Start Date: 06/11/18 Stop Date: 06/11/18 Status: Completed Lactated Ringers Injection IV 1000 mL 1,000 mL, Rate: 25 ml/hr, Infuse over: 40 hr, Route: IV, Dosing Weight 61.591 kg , Total Volume: 1,000, Start date: 06/11/18 13:39:00 BRANCH SERVICE REPRESENTATIVE, Duration: 30 day, Stop date: 07/11/18 13:38:00 BRANCH SERVICE REPRESENTATIVE, 1.66, m2 Start Date: 06/11/18 Stop Date: 06/11/18 Status: Discontinued levothyroxine 25 microgram, Route: PO, Drug form: TAB, Daily, Dosing Weight 61.591, kg, Start date: 06/12/18 9:00:00 BRANCH SERVICE REPRESENTATIVE, Duration: 30 day, Stop date: 07/11/18 9:00:00 BRANCH SERVICE REPRESENTATIVE Start Date: 06/12/18 Stop Date: 06/12/18 Status: Discontinued levothyroxine 25 mcg (0.025 mg) oral tablet 25 microgram=1 tab, PO, Daily, # 90 tab, 1 Refill(s) Start Date: 06/07/18 Status: Suspended lidocaine (ANES) Route: IV, Drug form: INJ, ONCE, Stop date: 06/11/18 15:39:00 BRANCH SERVICE REPRESENTATIVE Start Date: 06/11/18 Stop Date: 06/11/18 Status: Completed metoclopramide (ANES) Route: IV, Drug form: INJ, ONCE, Stop date: 06/11/18 15:44:00 BRANCH SERVICE REPRESENTATIVE Start Date: 06/11/18 Stop Date: 06/11/18 Status: Completed Micardis HCT 40 mg-12.5 mg oral tablet 1 tab, PO, PRN, 0 Refill(s) Start Date: 06/07/18 Status: Suspended morphine Sulfate 2 mg, Route: IVP, Q3H, Dosing Weight 61.591, kg, PRN Pain Score 1-3, Start date: 06/11/18 15:42:00 BRANCH SERVICE REPRESENTATIVE, Duration: 30 day, Stop date: 07/11/18 15:41:00 BRANCH SERVICE REPRESENTATIVE Start Date: 06/11/18 Stop Date: 06/12/18 Status: Discontinued neostigmine (ANES) Route: IV, Drug form: INJ, ONCE, Stop date: 06/11/18 16:02:00 BRANCH SERVICE REPRESENTATIVE Start Date: 06/11/18 Stop Date: 06/11/18 Status: Completed Mccoll-3 oral capsule PO, Daily, 0 Refill(s) Start Date: 06/07/18 Status: Suspended ondansetron 4 mg, Route: IVP, Drug form: INJ, ONCE, Dosing Weight 61.591, kg, Start date: 15:42:00 BRANCH SERVICE REPRESENTATIVE, Stop date: 06/11/18 15:42:00 BRANCH SERVICE REPRESENTATIVE, .. Start Date: 06/11/18 Stop Date: 06/21/18 Status: Discontinued ondansetron (ANES) Route: IV, Drug form: INJ, ONCE, Stop date: 06/11/18 15:44:00 BRANCH SERVICE REPRESENTATIVE Start Date: 06/11/18 Stop Date: 06/11/18 Status: Completed polyethylene glycol 3350 17 gm, Route: PO, Daily, Dosing Weight 61.591, kg, Start date: 06/12/18 9:00:00 BRANCH SERVICE REPRESENTATIVE, Duration: 30 day, Stop date: 07/11/18 9:00:00 BRANCH SERVICE REPRESENTATIVE Start Date: 06/12/18 Stop Date: 06/12/18 Status: Discontinued polyethylene glycol 3350 17 gm, PO, Daily, 0 Refill(s) Start Date: 06/07/18 Status: Suspended propofol (ANES) Route: IV, Drug form: INJ, ONCE, Stop date: 06/11/18 15:39:00 BRANCH SERVICE REPRESENTATIVE Start Date: 06/11/18 Stop Date: 06/11/18 Status: Completed rocuronium (ANES) Route: IV, Drug form: INJ, ONCE, Stop date: 06/11/18 15:39:00 BRANCH SERVICE REPRESENTATIVE Start Date: 06/11/18 Stop Date: 06/11/18 Status: Completed tizanidine 4 mg oral capsule 4 mg=1 cap, PO, Bedtime, PRN for muscle spasm, # 30 cap, 0 Refill(s) Start Date: 06/07/18 Status: Suspended tramadol 50 mg, Route: PO, Drug form: TAB, ONCE, Dosing Weight 61.591, kg, Start date: 15:42:00 BRANCH SERVICE REPRESENTATIVE, Stop date: 06/11/18 15:42:00 BRANCH SERVICE REPRESENTATIVE, .. Start Date: 06/11/18 Stop Date: 06/21/18 Status: Discontinued tramadol 50 mg, Route: PO, Drug form: TAB, Q6H, Dosing Weight 61.591, kg, PRN Pain Score 1-3, Start date: 06/11/18 15:42:00 BRANCH SERVICE REPRESENTATIVE, Duration: 30 day, Stop date: 07/11/18 15 :41:00 BRANCH SERVICE REPRESENTATIVE Start Date: 06/11/18 Stop Date: 06/12/18 Status: Discontinued Zofran 4 mg, Route: IV, Drug form: INJ, Q4H, Dosing Weight 61.591, kg, PRN Nausea, Star t date: 06/11/18 15:42:00 BRANCH SERVICE REPRESENTATIVE, Duration: 30 day, Stop date: 07/11/18 15:41:00 CS T Start Date: 06/11/18 Stop Date: 06/12/18 Status: Discontinued Zofran 4 mg, Route: IVP, Drug form: INJ, ONCE, Dosing Weight 61.591, kg, Start date: 12:57:00 BRANCH SERVICE REPRESENTATIVE, Stop date: 06/11/18 12:57:00 BRANCH SERVICE REPRESENTATIVE Start Date: 06/11/18 Stop Date: 06/11/18 Status: Completed Results Most recent to 1 oldest [Reference Range]: Neutrophils # 6.1 K/CMM [1.5-8.1 K/CMM] (06/07/18 7:25 AM) Lymphocytes # 3.2 K/CMM [1.0-5.5 K/CMM] (06/07/18 7:25 AM) Monocytes # [0.0-0.8 1.1 K/CMM K/CMM] *HI* (06/07/18 7:25 AM) Eosinophils # 0.3 K/CMM [0.0-0.5 K/CMM] (06/07/18 7:25 AM) Large Plt [None Moderate Seen] *ABN* (06/07/18 7:25 AM) eGFR 83 mL/min/1.73m2 1 *NA* (06/07/18 7:25 AM) AGAP [10.0-20.0 11.0 mEq/L mEq/L] (06/07/18 7:25 AM) Basophils [0.0-1.0 0.1 % %] (06/07/18 7:25 AM) BUN [7-22 mg/dL] 13 mg/dL (06/07/18 7:25 AM) Calcium Lvl 9.1 mg/dL [8.5-10.5 mg/dL] (06/07/18 7:25 AM) Chloride Lvl [95-109 102 mEq/L mEq/L] (06/07/18 7:25 AM) CO2 [24-32 mEq/L] 31 mEq/L (06/07/18 7:25 AM) Creatinine Lvl 0.67 mg/dL [0.50-1.40 mg/dL] (06/07/18 7:25 AM) Eosinophils [0.0-4.0 2.4 % %] (06/07/18:25 AM) Glucose Lvl [70-99 100 mg/dL mg/dL] *HI* (06/07/18:25 AM) Hct [36.0-48.0 %] 47.6 % (06/07/18 AM) Hgb [12.0-16.0 g/dL] 16.0 g/dL (06/07/18 AM) Potassium Lvl 4.0 mEq/L [3.5-5.1 mEq/L] (06/07/1825 AM) Lymphocytes 29.6 % [20.0-40.0 %] (06/07/18 AM) MCH [27.0-31.0 pg] 31.4 pg *HI* (06/07/18 AM) MCHC [32.0-36.0 33.6 g/dL g/dL] (06/07/1825 AM) MCV [80.0-98.0 fL] 93.6 fL (06/07/18:25 AM) Monocytes [2.0-12.0 10.6 % %] (06/07/1825 AM) MPV [7.4-10.4 fL] 11.4 fL *HI* (06/07/18:25 AM) Sodium Lvl [135-145 140 mEq/L mEq/L] (06/07/18 AM) Platelet [133-450 180 K/CMM K/CMM] (06/07/18:25 AM) Segs [45.0-75.0 %] 57.3 % (06/07/18:25 AM) RBC [4.20-5.40 5.09 M/CMM M/CMM] (06/07/18:25 AM) RBC Morph Normal (06/07/18:25 AM) RDW [11.5-14.5 %] 12.8 % (06/07/18:25 AM) WBC [3.7-10.4 K/CMM] 10.7 K/CMM *HI* (06/07/18 7:25 AM) 1Result Comment: The eGFR is calculated using [...] be mul tiplied by the estimated BMI. Immunizations No data available for this section [...]
--- OUTSIDE RECORDS SUMMARY | 2019-02-25 07:26 | XMS REPORT | Summary of Care ---
Author Author [facility] Organization [facility] Address Unknown Phone Unavailable Encounter HQ Scooter(FIN) [id number] Date(s): 07/27/17 - 07/27/17 [facility] [address] [place] [address]- Encounter Diagnosis Encounter for screening mammogram for malignant neoplasm of breast (Final) - 08/01/17 Primary osteoarthritis, unspecified site (Final) - Age-related osteoporosis without current pathological fracture (Final) - Other specified disorders of bone density and structure, left lower leg (Final) - Asymptomatic menopausal state (Final) - Other specified postprocedural states (Final) - Discharge Disposition: Home or Self Care Attending Physician: Gorge Winter MD Referring Physician: Gorge Winter MD Vital Signs No data available for this section Problem List Condition Effective Dates Status Health Status Informant Anemia(Confirmed) Active Back Active injury(Confirmed) Breast Active cancer(Confirmed) DVT - Deep vein Active thrombosis(Confirmed ) [...]
--- OUTSIDE RECORDS SUMMARY | 2019-02-25 07:26 | XMS REPORT | Summary of Care ---
Author Author [facility] Organization [facility] Address Unknown Phone Unavailable Encounter ELEANOR Helms(FIN) [id number] Date(s): 06/12/18 - 06/12/18 [facility] [address] [place] [address]- [phone] Attending Physician: Gorge Winter MD Referring Physician: [...]
--- OUTSIDE RECORDS SUMMARY | 2019-02-25 07:26 | XMS REPORT | Summary of Care ---
Author Author [facility] Address Unknown Phone Unavailable Encounter ELEANOR Helms(JUS) [id number] Date(s): 07/03/18 - 08/01/18 [facility] Encounter Diagnosis Primary osteoarthritis, right shoulder (Final) - 08/06/18 Pain in right shoulder (Final) - Sprain of right rotator cuff capsule, subsequent encounter (Final) - Impingement syndrome of right shoulder (Final) - Superior glenoid labrum lesion of right shoulder, subsequent encounter (Final) - Weakness (Final) - Abnormal posture (Final) - Pure hypercholesterolemia, unspecified (Final) - Essential (primary) hypertension (Final) - Personal history of malignant neoplasm, unspecified (Final) - Discharge Disposition: Home or Self Care Attending Physician: Enoch Junior Vital Signs No data available for this [...]
--- OUTSIDE RECORDS SUMMARY | 2019-02-25 07:26 | XMS REPORT | Summary of Care ---
Author Author [facility] Address Unknown Phone Unavailable Encounter ELEANOR Helms(FIN) [id number] Date(s): 09/06/18 - 10/05/18 [facility] Dis[facility] Disposition: Home or Self Care Attending [...]
--- OUTSIDE RECORDS SUMMARY | 2019-02-25 07:26 | XMS REPORT | Summary of Care ---
Author Author [facility] Address Unknown Phone Unavailable Encounter ELEANOR Helms(FIN) [phone] Date(s): 08/07/18 - 09/05/18 [facility] Discharge Disposition: Home or Self Care Attending [...]
--- OUTSIDE RECORDS SUMMARY | 2019-02-25 07:26 | XMS REPORT | Summary of Care ---
Author Author [facility] Address Unknown Phone Unavailable Encounter HQ Scooter(FIN) [phone] Date(s): 07/03/18 - 08/01/18 [facility] Discharge Disposition: Home or Self Care Attending [...]
[2019-02-25 11:23] VITALS: BP 134/75
== END | disposition home or self-care (01) ==
LOC: OR 07:21
PROVIDERS: ATTEND Ophthalmology
DX: H25.11 Age-related nuclear cataract, right eye (principal); I10 Essential (primary) hypertension; E78.5 Hyperlipidemia, unspecified; E03.9 Hypothyroidism, unspecified; Z01.812 Encounter for preprocedural laboratory examination
CPT/HCPCS: 36415; 66984; 85025; J1100; J2250; J2405; J3010; V2632